=== PATIENT | male | born 1940 | race Caucasian/White ===

== ENCOUNTER 2021-06-16 19:24 | Emergency (ER) | payer MEDICARE, OTHER, SELFPAY ==
[2021-06-16 19:29] VITALS: BP 154/84; PULSE 100; RESP 20; TEMP 36.2; O2SAT 94; BMI 32.6
--- NOTE | 2021-06-16 19:57 | W.ED.ANXIETY ---
HPI - Anxiety General: Chief Complaint: Anxiety Stated Complaint: extreme anxiety Time Seen by Provider: 06/16/21 19:40 History of Present Illness: HPI narrative: Patient is a 80-year-old male who comes to the ED with anxiety. Patient says he has had anxiety like this in the past. It started last night when he went to lay down he described feeling a little claustrophobic and he got real antsy. He says he was not able to lay down and sleep all night. He was pacing around the room all night. Reports feeling mild shortness of breath and fidgety during anxiety episodes. patient's symptoms did improve during the day with some of them. He says when it started getting dark he started feeling the same symptoms again. He has talked to his primary care doctor about this anxiety and he is supposed to be getting a prescription for anxiety soon. He denies any chest pain. Patient also states that about a week ago he had some skin cancer removed on his right lower leg. He did say that caused him some stress over the past week because it required a lot of home care and changing dressing twice a day. Associated symptoms: Deny chest pain, chills, fever(s), headache(s), nausea, palpitations or vomiting Review of Systems Const: Denies: fever(s), chills or fatigue Eyes: Denies: change in vision or eye discomfort ENMT: Denies: throat pain, odynophagia, nasal discharge or nasal congestion Card: Denies: chest pain, palpitations, edema, swelling of feet/ankles, dyspnea on exertion or orthopnea Resp: Denies: dyspnea, productive cough or non-productive cough GI: Denies: abdominal pain, nausea, vomiting, diarrhea, constipation or hematochezia : Denies: flank pain, difficulty urinating, dysuria or hematuria Musc: Denies: neck pain, back pain or extremity swelling Skin/Breast: Denies: rash or new lesions Neuro: Denies: headache(s), numbness in extremities or weakness in extremities Psych: Reports: anxiety Physical Exam Const: COMMON NORMALS: no acute distress, patient oriented x3 and alert GENERAL APPEARANCE: cooperative and anxious HENMT: COMMON NORMALS: normocephalic HEAD & SCALP: normocephalic MOUTH: Normal oral and palatal mucosa present THROAT: posterior oropharynx normal and uvula midline Eye: COMMON NORMALS: Equal, round and reactive pupils present PUPIL: Yes Equal, round and reactive pupils present Neck/C-Spine: COMMON NORMALS: supple GENERAL: Yes normal visual inspection Resp: COMMON NORMALS: normal respiratory effort, No retractions, No use of accessory muscles and clear to auscultation bilaterally AUSCULTATION: clear to auscultation bilaterally Cardio: COMMON NORMALS: regular rate, regular rhythm, S1 normal heart sound present, S2 normal heart sound present, No gallops present (Cardio), No clicks present (Cardio), No murmurs present (Cardio) and Peripheral pulses 2+ throughout RATE: regular rate RHYTHM: regular rhythm HEART SOUNDS: S1 normal heart sound present and S2 normal heart sound present PERIPHERAL PULSES: Peripheral pulses 2+ throughout GI: COMMON NORMALS: Normal to inspection, nondistended, normoactive bowel sounds present, Soft to palpation, non-tender and no masses PALPATION: Yes Soft to palpation : COMMON NORMALS: Yes no CVA tenderness BLADDER/KIDNEY EXAM: Yes no CVA tenderness Back/Pelvis: COMMON NORMALS: no CVA tenderness Neuro: COMMON NORMALS: patient oriented x3 and moves all extremities SENSORIUM/ORIENTATION: Yes alert Skin: GENERAL SKIN EXAM: dry skin Course Reevaluation(s): Reevaluation #1: After patient received dose of Ativan here in the ED his symptoms resolved and he was ready to go home and rest. Vital Signs: Vital signs: Vital Signs Temperature 97.1 F L 06/16/21 19:29 Pulse Rate 84 06/16/21 21:44 Respiratory Rate 16 06/16/21 21:44 Blood Pressure 142/89 06/16/21 21:44 Pulse Oximetry 98 06/16/21 21:44 MDM - Anxiety MDM Narrative: Medical decision making narrative: Patient is a 80-year-old male comes to the ED with acute anxiety. Symptoms started last night and he had trouble sleeping and was up unable to relax all night. Denies any chest pain. Patient says he has had this acute anxiety multiple times in the past and also states that he is currently trying to get on a prescription for anxiety with his PCP. Vitals are stable. Exam is benign. EKG showed normal sinus rhythm with no ST segment elevation or depression. CBC and CMP were unremarkable. Patient was given dose of Ativan while here in the ED and his symptoms improved greatly. Patient was diagnosed with acute anxiety and discharged home with a prescription for Vistaril. He has an appointment set up with his PCP for this coming June 21. Return to ED precautions given. Patient understood agree with plan. EKG Data^: EKG 1: Attestation: I personally reviewed and interpreted this EKG as follows: EKG interpretation date: 06/16/21 Interpretation: Normal sinus rhythm, 97 bpm, no ST segment elevation or depression seen. Lab Data: Attestation: I reviewed the patient's lab results. Labs: Lab Results 06/16/21 06/16/21 20:54 20:54 WBC 10.8 10^3/uL H 10 ^3/uL (4.0-10.0) RBC 4.41 10^6/uL 10^6 /uL (4.1-5.3) Hgb 15.0 g/dL g/dL (11.7-16.6) Hct 43.1 % % (42.0-52.0) MCV 97.7 fl H fl (80-94) MCH 34.0 pg pg (28.0-34.0) MCHC 34.8 g/dL g/dL (30.0-36.0) RDW 12.5 % % (12.1-15.1) Plt Count 230 10^3/cmm 10^3 /cmm (130-400) MPV 9.1 fL fL (7.4-10.4) Neut % (Auto) 73.5 % % Lymph % (Auto) 13.7 % % Vance % (Auto) 10.2 % % Eos % (Auto) 1.8 % % Baso % (Auto) 0.3 % % Neut # (Auto) 7.97 10^3/uL H 10 ^3/uL (1.8-7.7) Lymph # (Auto) 1.5 10^3/uL 10^3/ uL (0.8-4.8) Vance # (Auto) 1.1 10^3/uL H 10^ 3/uL (0.2-0.9) Eos # (Auto) 0.2 10^3/uL 10^3/ uL (0.0-0.8) Baso # (Auto) 0.0 10^3/uL 10^3/ uL (0.0-0.1) Nucleated RBC % (a uto) 0 % % Nucleated RBCs # 0.0 /100WBC /100W BC Sodium 139 mmol/L mmol/L (136-145) Potassium 4.2 mmol/L mmol/L (3.5-5.1) Chloride 105 mmol/L mmol/L (98-107) Carbon Dioxide 21 mmol/L L mmol/ L (22-29) Anion Gap 17.2 (5-19) BUN 22 mg/dL mg/dL (8-23) Creatinine 1.1 mg/dL mg/dL (0.7-1.2) GFR Calculation Not Reportable Glucose 91 mg/dL mg/dL (65-115) Calculated Osmolal ity 291 mOsm/kg mOsm/ kg (285-295) Calcium 8.4 mg/dL L mg/dL (8.5-10.5) Total Bilirubin 0.3 mg/dL mg/dL (0.15-1.2) AST 24 U/L U/L (0-40) ALT 29 U/L U/L (0-41) Alkaline Phosphata se 60 IU/L IU/L (40-130) Total Protein 6.4 g/dL L g/dL (6.6-8.7) Albumin 4.2 g/dL g/dL (3.5-5.2) Globulin 2.2 g/dL g/dL (1.3-4.6) Discharge Plan Discharge Patient Disposition: Home Clinical Impression: Acute anxiety Condition: Stable Prescriptions: New hydroxyzine pamoate 50 mg capsule 50 mg PO Q8H PRN (Reason: acute anxiety) Qty: 20 RF: 0 Discharge Orders: Discharge ED (Routine); Ordered 06/16/21 Ordered By: Samir Bautista Referrals: Jerome Abdalla MD [Primary Care Provider] - Discharge Diet: Regular Discharge Activity: Resume usual activity Patient Instructions: Anxiety (ED) Activity Restrictions/Additional Instructions: Follow-up with your PCP at your scheduled appointment this coming Saturday. Take medications as prescribed. Return to the ER or your medical provider if condition worsens or you start developing chest pain. Please read and understand discharge instructions. Thank you for choosing [facility] for your healthcare needs today. Please realize this is an emergency room and that we are providing you with a medical screening exam and this may not be complete and all inclusive of all the testing and or work up that you may need to determine your ailment or severity of your illness. It is very important that you follow up as instructed or that you return to the Emergency Department should you have concerns or if your condition changes or worsens in any way. Coding Level of Care Code ED Contact Center Rep for Diana Fwnirmala Exam Comprehensive
[2021-06-16] MEDS: LORazepam 1 mg Tablet PO (20:00)
[2021-06-16 21:02] LABS: Basophils % 0.3 %; Eosinophils # 0.2 10^3/uL (0.0-0.8); Eosinophils % 1.8 %; Hematocrit 43.1 % (42.0-52.0); Lymphocytes # 1.5 10^3/uL (0.8-4.8); Lymphocytes % 13.7 %; Mean Corpuscular HGB Conc 34.8 g/dL (30.0-36.0); Mean Corpuscular Volume 97.7 fl (80-94); Mean Platelet Volume 9.1 fL (7.4-10.4); Monocytes # 1.1 10^3/uL (0.2-0.9); Monocytes % 10.2 %; Neutrophils # 7.97 10^3/uL (1.8-7.7); Neutrophils % 73.5 %; Nucleated Red Blood Cells % 0 %; Platelet Count 230 10^3/cmm (130-400); Red Blood Count 4.41 10^6/uL (4.1-5.3); Red Cell Distribution Width 12.5 % (12.1-15.1); White Blood Count 10.8 10^3/uL (4.0-10.0)
[2021-06-16 21:25] LABS: Alanine Aminotransferase 29 U/L (0-41); Albumin Level 4.2 g/dL (3.5-5.2); Alkaline Phosphatase 60 IU/L (40-130); Anion Gap 17.2 (5-19); Aspartate Amino Transferase 24 U/L (0-40); Blood Urea Nitrogen 22 mg/dL (8-23); Calcium 8.4 mg/dL (8.5-10.5); Carbon Dioxide 21 mmol/L (22-29); Chloride 105 mmol/L (98-107); Globulin 2.2 g/dL (1.3-4.6); Glucose 91 mg/dL (65-115); Osmolality Calculated 291 mOsm/kg (285-295); Potassium 4.2 mmol/L (3.5-5.1); Sodium 139 mmol/L (136-145); Total Bilirubin 0.3 mg/dL (0.15-1.2); Total Protein 6.4 g/dL (6.6-8.7)
[2021-06-16 21:44] VITALS: BP 142/89; PULSE 84; RESP 16; O2SAT 98
== END 2021-06-16 21:44 | disposition home or self-care (01) ==
PROVIDERS: Emergency Provider Physician Assistant; PCP Family Medicine
DX: F41.9 Anxiety disorder, unspecified (principal)
CPT/HCPCS: 80053; 85025; 99283

== ENCOUNTER → 2023-02-04 13:59 | Outpatient (BNVA) | payer MEDICARE, OTHER, SELFPAY | PROVIDERS: PCP Family Medicine; Visit Provider Nurse Practitioner Family | DX: L57.0 Actinic keratosis (principal); L30.1 Dyshidrosis [pompholyx]; L81.4 Other melanin hyperpigmentation; L82.1 Other seborrheic keratosis; D22.5 Melanocytic nevi of trunk; L85.3 Xerosis cutis; L82.0 Inflamed seborrheic keratosis; L57.8 Other skin changes due to chronic exposure to nonionizing radiation | CPT/HCPCS: 17004; 17110; 99203 ==

== ENCOUNTER 2023-05-20 15:09 | Emergency (ER) | payer MEDICARE, OTHER, SELFPAY ==
[2023-05-20 15:15] VITALS: BP 134/79; PULSE 82; RESP 16; TEMP 36.4; O2SAT 97; BMI 29.9
--- NOTE | 2023-05-20 16:03 | W.ED.BACK ---
HPI - Back Pain/Injury General: Chief Complaint: Back Pain/Injury Stated Complaint: back pain Time Seen by Provider: 05/20/23 15:29 Source: patient Mode of arrival: ambulatory Limitations: no limitations History of Present Illness: Patient is a nice 82-year-old male who presents to ED today with complaint of left-sided lower back pain. Patient states he has had similar pains multiple times in the past and normally can get flares calmed down with conservative therapies at home. He states over the past few days he has not been able to find relief. He states he recently saw his primary care provider and had lumbar XRs performed which showed chronic degenerative changes. He states he was given IM steroids which initially helped but pain has returned. He feels like pain is somewhat tolerable at rest when he gets up and walks he states that the area catches . He is not having any radicular symptoms into his lower extremities. He has no saddle anesthesia or issues with bowel/bladder incontinence/retention. There is no radiation into his abdomen. No urinary symptoms. MD elicited complaint: back pain Onset (ago): day(s) Timing: constant Severity: moderate Similar Symptoms Previously: No Quality: sharp Location: left lower back Radiation: none Exacerbating factors: walking Relieving factors: none Associated symptoms: Reports difficulty walking (secondary to back pain); Deny abdominal pain, chills, change in bowel habits, dysuria, fatigue, fever(s), nausea, urinary urgency or vomiting Work related injury: No Review of Systems Const: Denies: fever(s), chills, body aches, fatigue or malaise Card: Denies: chest pain Resp: Denies: dyspnea GI: Denies: abdominal pain, nausea, vomiting, diarrhea or change in bowel habits : Denies: flank pain, difficulty urinating, dysuria, urinary frequency, urinary urgency, urinary hesitancy, genital pain or testicular pain Musc: Reports: back pain; Denies: neck pain, extremity pain, extremity swelling, joint pain or joint swelling Skin/Breast: Denies: rash Neuro: Reports: difficulty walking (secondary to back pain); Denies: numbness in extremities, weakness in extremities or sensory changes Physical Exam Const: COMMON NORMALS: average body habitus, patient oriented x3, no limitations, healthy appearing and alert GENERAL APPEARANCE: cooperative and in distress (appears uncomfortable secondary to pain) ORIENTATION/CONSCIOUSNESS: Yes awake, Yes oriented to person, Yes oriented to place and Yes oriented to time Resp: COMMON NORMALS: normal respiratory effort and clear to auscultation bilaterally AUSCULTATION: clear to auscultation bilaterally Cardio: COMMON NORMALS: regular rate and regular rhythm RATE: regular rate RHYTHM: regular rhythm GI: COMMON NORMALS: Normal to inspection, nondistended, normoactive bowel sounds present, Soft to palpation, non-tender and no masses PALPATION: Yes Soft to palpation : COMMON NORMALS: Yes no CVA tenderness BLADDER/KIDNEY EXAM: Yes no CVA tenderness Back/Pelvis: COMMON NORMALS: no CVA tenderness, thoracic and lumbar spine normal to inspection, no thoracic nor lumbar tenderness and thoraco-lumbar ROM normal SACROILIAC JOINTS: Yes SI joint(s) abnormal SACRUM: no tenderness COCCYX: no tenderness BACK IMAGE (MALE): 1. TTP Extremity: COMMON NORMALS: normal to inspection, full ROM, capillary refill normal, no joint enlargement, no clubbing, cyanosis or edema, no calf tenderness and no pedal edema GENERAL: Yes normal exam except as noted Neuro: COMMON NORMALS: patient oriented x3, moves all extremities, no focal motor deficits and no sensory deficits noted SENSORIUM/ORIENTATION: Yes alert, Yes oriented to person, Yes oriented to place and Yes oriented to time MOTOR EXAM: 5/5 motor strength present throughout Skin: COMMON NORMALS: no rashes or lesions noted GENERAL SKIN EXAM: no rashes or lesions noted Course Vital Signs: Vital signs: Vital Signs Temperature 97.6 F 05/20/23 15:15 Pulse Rate 82 05/20/23 17:50 Respiratory Rate 16 05/20/23 15:15 Blood Pressure 101/67 05/20/23 17:50 Pulse Oximetry 95 05/20/23 17:50 Oxygen Delivery Me thod Room Air 05/20/23 16:22 MDM - Back Pain/Injury Medical Decision Making Patient states he feels somewhat better after medications given here although still in discomfort. There are no red flag symptoms on patient's history or physical exam. No form of emergent imaging is necessary at this time. We will treat patient with pain medications, muscle relaxers, steroids, anti-inflammatories. Recommend he follow-up with primary care later this week if symptoms do not seem to be improving. Return ED precautions given. No radiology studies performed this visit Discharge Plan Discharge Patient Disposition: Home Clinical Impression: Sacro-iliac pain Condition: Stable Prescriptions: New cyclobenzaprine 10 mg tablet 10 mg PO TID Qty: 14 0RF hydrocodone-acetaminophen 5-325 mg tablet 1 tab PO Q6H PRN (Reason: pain) Qty: 14 0RF Medrol (Mohan) 4 mg tablets,dose pack See Rx Instructions .ROUTE .COMPLEX Qty: 21 0RF Rx Instructions: orally per package directions ibuprofen 600 mg tablet 600 mg PO Q8H PRN (Reason: pain) Qty: 20 0RF No Action paroxetine HCl 10 mg tablet 10 mg PO DAILY doxazosin 8 mg tablet 8 mg PO DAILY gabapentin 300 mg capsule 300 mg PO DAILY rosuvastatin 20 mg tablet 20 mg PO BEDTIME Discharge Orders: Discharge ED (Routine); Ordered 05/20/23 Ordered By: Caridad Andrade Referrals: Jerome Abdalla MD [Primary Care Provider] - Patient Instructions: Sacroiliitis (ED), Opioid Safety, Pain Management Activity Restrictions/Additional Instructions: As we discussed we will put you on steroids, anti-inflammatories, pain medications, and muscle relaxers to help with your discomfort. You may also try ice, heat, and gentle stretches. As we discussed please follow-up with your primary care provider later this week if symptoms do not seem to be improving. Coding Level of Care Code ED Director Of Occupational Therapy for Diana Wick
[2023-05-20] MEDS: dexamethasone 10 mg/mL INJ 6 MG IV (16:16)
[2023-05-20] MEDS: orphenadrine 30 mg/mL Inj 2 mL 60 MG IV (16:16)
[2023-05-20] MEDS: morphine 4 mg/mL SDV 1 mL IVP (16:16)
[2023-05-20] MEDS: ketorolac 60 mg/2 mL INJ 15 MG IVP (16:16)
[2023-05-20 16:22] VITALS: PULSE 82; O2SAT 96
[2023-05-20] MEDS: HYDROmorphone 1 mg/mL INJ 1 mL 0.5 MG IVP (17:22)
[2023-05-20 17:50] VITALS: BP 101/67; PULSE 82; O2SAT 95
== END 2023-05-20 17:52 | disposition home or self-care (01) ==
PROVIDERS: Emergency Provider Physician Assistant; PCP Family Medicine
DX: M53.3 Sacrococcygeal disorders, not elsewhere classified (principal)
CPT/HCPCS: 96374; 96375; 99284; J1100; J1170; J1885; J2270; J2360

== ENCOUNTER → 2023-06-10 10:18 | Outpatient (BNVA) | payer MEDICARE, OTHER, SELFPAY | PROVIDERS: PCP Family Medicine; Visit Provider Nurse Practitioner Family | DX: L81.4 Other melanin hyperpigmentation (principal); L82.1 Other seborrheic keratosis; D22.5 Melanocytic nevi of trunk; L85.3 Xerosis cutis; L57.8 Other skin changes due to chronic exposure to nonionizing radiation; L73.8 Other specified follicular disorders; L23.9 Allergic contact dermatitis, unspecified cause; Z08 Encounter for follow-up examination after completed treatment for malignant neoplasm; Z85.828 Personal history of other malignant neoplasm of skin; L57.0 Actinic keratosis; L82.0 Inflamed seborrheic keratosis | CPT/HCPCS: 17004; 17110; 99214 ==

== ENCOUNTER → 2024-04-07 13:43 | Outpatient (BNVA) | payer MEDICARE, SELFPAY | PROVIDERS: PCP Family Medicine; Visit Provider Nurse Practitioner Family | DX: D48.5 Neoplasm of uncertain behavior of skin (principal); L81.4 Other melanin hyperpigmentation; L82.1 Other seborrheic keratosis; D22.5 Melanocytic nevi of trunk; L57.8 Other skin changes due to chronic exposure to nonionizing radiation; L73.8 Other specified follicular disorders; L57.0 Actinic keratosis; L82.0 Inflamed seborrheic keratosis; Z85.828 Personal history of other malignant neoplasm of skin | CPT/HCPCS: 11102; 17004; 17110; 99213 ==

== ENCOUNTER → 2024-06-08 07:59 | Outpatient (BNVA) | payer MEDICARE, SELFPAY | PROVIDERS: PCP Family Medicine; Visit Provider Dermatology | DX: C44.92 Squamous cell carcinoma of skin, unspecified (principal); I78.8 Other diseases of capillaries; L57.0 Actinic keratosis | CPT/HCPCS: 17000; 99214 ==

== ENCOUNTER → 2025-04-09 10:34 | Outpatient (BNVA) | payer MEDICARE, BC, SELFPAY | PROVIDERS: PCP Family Medicine; Visit Provider Dermatology | DX: L73.8 Other specified follicular disorders (principal); I78.8 Other diseases of capillaries; Z08 Encounter for follow-up examination after completed treatment for malignant neoplasm; D18.01 Hemangioma of skin and subcutaneous tissue; L81.4 Other melanin hyperpigmentation; L82.1 Other seborrheic keratosis; L57.8 Other skin changes due to chronic exposure to nonionizing radiation; Z85.828 Personal history of other malignant neoplasm of skin; D48.5 Neoplasm of uncertain behavior of skin; L57.0 Actinic keratosis | CPT/HCPCS: 11102; 17000; 99214 ==

== ENCOUNTER 2025-05-13 17:30 | Emergency (ER) | payer MEDICARE, OTHER, SELFPAY ==
[2025-05-13 17:34] VITALS: BP 157/88; PULSE 80; RESP 17; TEMP 36.7; O2SAT 95; BMI 33.1
--- OUTSIDE RECORDS SUMMARY | 2025-05-13 17:36 | XMS_ITS | Encounter Summary ---
Author Organization [facility] Address [address] [place] [address] Care Team Providers Care Laminator Preforms Name Role Phone Jerome Abdalla MD Primary Care Provider [phone] Encounter Details Date Type Department Care Team (Latest Contact Info) Description 02/28/2001 Outpatient Historical [facility] Vaisliy Paris MD [address] [place] [address] Nonallopathic lesion of abdomen and other sites, not elsewhere classified (Primary Dx) Social History Tobacco Use Types Packs/Day Years Used Date Smoking Tobacco: Never Assessed Sex and Gender Information Value Date Recorded Sex Assigned at Not on file 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
--- OUTSIDE RECORDS SUMMARY | 2025-05-13 17:36 | XMS_ITS | Encounter Summary ---
Author Organization [facility] Address [address] [place] [address] Care Team Providers Care It Support Analyst Name Role Phone Jerome Abdalla MD Primary Care Provider [phone] Encounter Details Date Type Department Care Team (Late st Contact Info) Description 09/25/2006 Inpatient Historical [facility] Levon Connelly MD 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 Gender Identity Not on file Sexual Orientation Not on file documented as of this encounter Plan of Treatment Not on file documented as of this encounter Procedures Procedure Name Priority Date/Time Associated Diagnosis Comments BASIC METABOLIC PANEL Routine 09/27/2006 5:56 AM CDT HEMOGLOBIN AND HEMATOCRIT Routine 09/26/2006 5:10 AM CDT BASIC METABOLIC PANEL Routine 09/26/2006 5:10 AM CDT HEMOGLOBIN AND HEMATOCRIT Routine 09/25/2006 11:40 AM CDT BASIC METABOLIC PANEL Routine 09/25/2006 11:40 AM CDT documented in this encounter Results * (ABNORMAL) BASIC METABOLIC PANEL (09/27/2006 5:56 AM CDT) GLUCOSE 99 70 - 110 mg/dL INTERFACE SYSTEM BUN 18 9 - 20 mg/dL INTERFACE SYSTEM CREATININE 1.9(H) 0.7 - 1.5 mg/dL INTERFACE SYSTEM SODIUM 139 136 - 145 mEq/L INTERFACE SYSTEM POTASSIUM 4.5 3.5 - 5.0 mEq/L INTERFACE SYSTEM Comment:Specimen slightly he molyzed CHLORIDE 109 95 - 110 mEq/L INTERFACE SYSTEM CO2 28 22 - 32 mmol/l INTERFACE SYSTEM CALCIUM 8.6 8.4 - 10.5 mg/dL INTERFACE SYSTEM ANION GAP 7(L) 9 - 20 mEq/L INTERFACE SYSTEM OSMOLALITY, CALCULATED 289 275 - 295 mOsm/Kg INTERFACE SYSTEM 09/27/2006 5:56 AM CDT Levon Connelly MD CHEMISTRY ORDERABLES Edited Performing Organization Address [facility] de Phone Number INTERFACE SYSTEM Refer to clinic/hospital department * (ABNORMAL) HEMOGLOBIN AND HEMATOCRIT (09/26/2006 5:10 AM CDT) HEMOGLOBIN 13.2(L) 14.0 - 18.0 g/dL INTERFACE SYSTEM HEMATOCRIT 39.1(L) 41.0 - 53.0 % INTERFACE SYSTEM 09/26/2006 5:10 AM CDT Levon Connelly MD HEMATOLOGY ORDERABLES Edited Performing Organization Address [facility] Phone Number INTERFACE SYSTEM Refer to clinic/hospital department * (ABNORMAL) BASIC METABOLIC PANEL (09/26/2006 5:10 AM CDT) GLUCOSE 113(H) 70 - 110 mg/dL INTERFACE SYSTEM BUN 20 9 - 20 mg/dL INTERFACE SYSTEM CREATININE 1.9(H) 0.7 - 1.5 mg/dL INTERFACE SYSTEM SODIUM 140 136 - 145 mEq/L INTERFACE SYSTEM POTASSIUM 4.1 3.5 - 5.0 mEq/L INTERFACE SYSTEM CHLORIDE 105 95 - 110 mEq/L INTERFACE SYSTEM CO2 29 22 - 32 mmol/l INTERFACE SYSTEM CALCIUM 7.9(L) 8.4 - 10.5 mg/dL INTERFACE SYSTEM ANION GAP 10 9 - 20 mEq/L INTERFACE SYSTEM OSMOLALITY, CALCULATED 291 275 - 295 mOsm/Kg INTERFACE SYSTEM 09/26/2006 5:10 AM CDT Levon Connelly MD CHEMISTRY ORDERABLES Edited Performing Organization Address [facility] Phone Number INTERFACE SYSTEM Refer to clinic/hospital department * HEMOGLOBIN AND HEMATOCRIT (09/25/2006 11:40 AM CDT) HEMOGLOBIN 14.8 14.0 - 18.0 g/dL INTERFACE SYSTEM HEMATOCRIT 42.4 41.0 - 53.0 % INTERFACE SYSTEM 09/25/2006 11:4 0 AM CDT Levon Connelly MD HEMATOLOGY ORDERABLES Edited Performing Organization Address [facility] Phone Number INTERFACE SYSTEM Refer to clinic/hospital department * (ABNORMAL) BASIC METABOLIC PANEL (09/25/2006 11:40 AM CDT) GLUCOSE 150(H) 70 - 110 mg/dL INTERFACE SYSTEM BUN 15 9 - 20 mg/dL INTERFACE SYSTEM CREATININE 1.3 0.7 - 1.5 mg/dL INTERFACE SYSTEM SODIUM 138 136 - 145 mEq/L INTERFACE SYSTEM POTASSIUM 4.3 3.5 - 5.0 mEq/L INTERFACE SYSTEM CHLORIDE 106 95 - 110 mEq/L INTERFACE SYSTEM CO2 24 22 - 32 mmol/l INTERFACE SYSTEM CALCIUM 8.0(L) 8.4 - 10.5 mg/dL INTERFACE SYSTEM ANION GAP 12 9 - 20 mEq/L INTERFACE SYSTEM OSMOLALITY, CALCULATED 288 275 - 295 mOsm/Kg INTERFACE SYSTEM 09/25/2006 11:4 0 AM CDT Levon Connelly MD CHEMISTRY ORDERABLES Edited Performing Organization Address [facility] Phone Number INTERFACE SYSTEM Refer to clinic/hospital department documented in this encounter Visit Diagnoses Diagnosis Malignant neoplasm of kidney, except pelvis (CMS/HCC)- Primary Malignant neoplasm of kidney, except pelvis documented in this encounter Care Teams It Support Analyst Relationship Specialty Start Date End Date Jerome Abdalla MD [address] [facility] [address] [place] [address] PCP - General Family Practice 10/07/12 documented as of this encounter
--- OUTSIDE RECORDS SUMMARY | 2025-05-13 17:36 | XMS_ITS | Encounter Summary ---
Author Organization [facility] Address [address] [place] [address] Care Team Providers Care Machine Design Checker Name Role Phone Jerome Abdalla MD Primary Care Provider [phone] Encounter Details Date Type Department Care Team (Latest Contact Info) Description 03/19/2007 Outpatient Historical [facility] [address] 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
--- OUTSIDE RECORDS SUMMARY | 2025-05-13 17:36 | XMS_ITS | Encounter Summary ---
Author Organization [facility] Address [address] [place] [address] Care Team Providers Care Patient Safety Sitter Name Role Phone Jerome Abdalla MD Primary Care Provider [phone] Encounter Details Date Type Department Care Team (Latest Contact Info) Description 05/07/2007 Outpatient [facility] [address] [place] [phone] Zacarias Dennis Malignant Neoplasm of Kidney, except Pelvis (CMS/HCC) (Primary Dx) Social History Tobacco Use Types Packs/Day Years Used Date Smoking Tobacco: Never Assessed Sex and Gender Information Value Date Recorded Sex Assigned at Not on file 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
--- OUTSIDE RECORDS SUMMARY | 2025-05-13 17:36 | XMS_ITS | Encounter Summary ---
Author Organization [facility] Address [address] [place] [address] Care Team Providers Care Staff Registered Nurse Name Role Phone Jerome Abdalla MD Primary Care Provider [phone] Encounter Details Date Type Department Care Team (Latest Contact Info) Description 03/19/2007 Outpatient Historical [facility] Procedures [address] 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
--- OUTSIDE RECORDS SUMMARY | 2025-05-13 17:36 | XMS_ITS | Encounter Summary ---
Author Organization [facility] Address [address] [place] [address] Care Team Providers Care Digital Project Manager Name Role Phone Jerome Abdalla MD Primary Care Provider [phone] Encounter Details Date Type Department Care Team (Latest Contact Info) Description 03/26/2007 Outpatient Historical [facility] Pain 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
--- OUTSIDE RECORDS SUMMARY | 2025-05-13 17:36 | XMS_ITS | Encounter Summary ---
Author Organization [facility] Address [address] [place] [address] Care Team Providers Care Curriculum Development Coordinator Name Role Phone Jerome Abdalla MD Primary Care Provider [phone] Encounter Details Date Type Department Care Team (Latest Contact Info) Description 09/03/2006 Outpatient Historical [facility] 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
--- OUTSIDE RECORDS SUMMARY | 2025-05-13 17:36 | XMS_ITS | Encounter Summary ---
Author Organization [facility] Address [address] [place] [address] Care Team Providers Care High Lift Driver Name Role Phone Jerome Abdalla MD Primary Care Provider [phone] Encounter Details Date Type Department Care Team (Latest Contact Info) Description 04/02/2007 Outpatient Historical [facility] Procedures [address] 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
--- OUTSIDE RECORDS SUMMARY | 2025-05-13 17:36 | XMS_ITS | Encounter Summary ---
Author Organization 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; SCREENING MAL NEOP-PROSTATE Social History Tobacco Use Types Packs/Day Years Used Date Smoking Tobacco: Never Assessed Sex and Gender Information Value Date Recorded Sex Assigned at Not on file 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
--- OUTSIDE RECORDS SUMMARY | 2025-05-13 17:36 | XMS_ITS | Clinical Summary ---
Author Organization [facility] Address [address] [facility] Attn: [place] [address] Care Team Providers Care Bar Back Name Role Phone Jerome Abdalla MD Primary Care Provider [phone] Allergies No known active allergies Medications doxazosin (CARDURA) 8 mg tabletIndication s:Benign non-nodular prostatic hyperplasia, presence of lower urinary tract symptoms unspecified Take 1 Tablet (8 mg) by mouth daily. 90 Tablet 3 10/30/2016 Active doxazosin (CARDURA) 8 mg tablet TAKE 1 TABLET EVERY DAY AT BEDTIME 90 Tablet 3 01/04/2016 Active Active Problems Problem Noted Date Diagnosed Date Personal history of kidney cancer 10/30/2016 BPH (benign prostatic hyperplasia) 10/28/2014 History of malignant neoplasm of kidney 10/08/19 13 Resolved Problems Problem Noted Date Diagnosed Date Resolved Date Renal cell carcinoma 08/24/2010 013 Social History Tobacco Use Types Packs/Day Years Used Date Smoking Tobacco: Never Alcohol Use Standard Drinks/Week Comments Not Asked 0 (1 standard drink = 0.6 oz pur e alcohol) Sex and Gender Information Value Date Recorded Sex Assigned at Not on file 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 Gender Identity Not on file Sexual Orientation Not on file Last Filed Vital Signs Vital Sign Reading Time Taken Comments Blood Pressure 140/89 10/30/2016 11:10 AM CDT Pulse 80 10/30/2016 11:10 AM CDT Temperature - - Respiratory Rate - - Oxygen Saturation - - Inhaled Oxygen Concentration - - Weight 97.5 kg (215 lb) 10/30/2016 11:10 AM CDT Height 172.7 cm (5' 8 ) 10/30/2016 11:10 AM CDT Body Mass Index 32.69 10/30/2016 11:10 AM CDT Plan of Treatment Health Maintenance Due Date Last Done Comments DTAP/TDAP/TD VACCINES (1 - Tdap) 1960 PNEUMOCOCCAL VACCINE 50+ YEARS (1 of 1 - PCV) 07/27/18 92 ZOSTER VACCINE (1 of 2) 1991 RSV VACCINE (60+ or ) (1 - 1-dose 75+ series) 2016 INFLUENZA VACCINE (#1) 2025 Care Teams Bar Back Relationship Specialty Start Date End Date Jerome Abdalla MD [address] [address] PCP - General Family Practice 10/07/12
--- OUTSIDE RECORDS SUMMARY | 2025-05-13 17:36 | XMS_ITS | Encounter Summary ---
Author Organization [facility] Address [address] [place] [address] Care Team Providers Care Relay Repairer Name Role Phone Jerome Abdalla MD Primary Care Provider [phone] Encounter Details Date Type Department Care Team (Latest Contact Info) Description 04/29/2007 Outpatient Historical [facility] [address] [facility] [address] [place] [phone] Catalina Fontaine PA NO ADDRESS ON FILE Thoracic or Lumbosacral Neuritis or Radiculitis, Unspecified (Primary Dx) Social History Tobacco Use Types Packs/Day Years Used Date Smoking Tobacco: Never Assessed Sex and Gender Information Value Date Recorded Sex Assigned at Not on file 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
--- OUTSIDE RECORDS SUMMARY | 2025-05-13 17:36 | XMS_ITS | Encounter Summary ---
Author Organization [facility] Address [address] [place] [address] Care Team Providers Care Bottle Cleaner Name Role Phone Jerome Abdalla MD Primary Care Provider [phone] Encounter Details Date Type Department Care Team (Latest Contact Info) Description 03/26/2007 Outpatient Historical [facility] Pain Management Procedures [address] 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
--- OUTSIDE RECORDS SUMMARY | 2025-05-13 17:36 | XMS_ITS | Encounter Summary ---
Author Organization [facility] Address [address] [place] [address] Care Team Providers Care Studio Assistant Name Role Phone Jerome Abdalla MD Primary Care Provider Encounter Details Date Type Department Care Team (Late st Contact Info) Description 09/12/2007 Outpatient Historical [facility] [address] [address] 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
--- OUTSIDE RECORDS SUMMARY | 2025-05-13 17:36 | XMS_ITS | Encounter Summary ---
Author Organization [facility] Address [address] [place] [address] Care Team Providers Care American Sign Language Interpreter Name Role Phone Jerome Abdalla MD Primary Care Provider [phone] Encounter Details Date Type Department Care Team (Latest Contact Info) Description 05/07/2007 Outpatient Historical [facility] Pain Management Procedures [address] 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
--- OUTSIDE RECORDS SUMMARY | 2025-05-13 17:36 | XMS_ITS | Continuity of Care Document ---
Author Organization YOVANI Brock Azevedo [facility] [address], [place], [facility]) Address [address] [place] [address] Care Team Providers Care Athletic Equipment Custodian Name Role Phone SAJI KIM Primary Care Provider Unavailabl e Assessment No assessment recorded. Plan of Treatment Reminders Order Date Submit Date Provider Last Modified By Organization Details Last Modified Time Details Appointments OFFICE VISIT JULIO 2024 01:00P Jodie Kim MD Not available Not available Not available 15 ANNUAL 2024 10:15A Jodie Kim MD Not available Not available Not available Lab None recorded. Referral None recorded. Procedures None recorded. Surgeries None recorded. Imaging None recorded. Medication Orders tizanidin e 2 mg tablet 2024 [facility]/Pharmacy #[id number], [address] [facility], [facility], [place], [address], 05/11/2025 17:55:36 betametha sone acetate and sodium phos 6 mg/mL suspensio n for injection 2024 [email or web address] Not available 05/11/2025 18:14:13 prednison e 20 mg tablet 2024 Miyaobabei [facility]/Pharmacy #[id number], [address], [facility], [place], [address], 05/11/2025 17:56:14 Patient TargetsNo targets recorded. Patient InstructionsNo instructions recorded. Reason for Referral None Reported. 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 ; right forearm; Date: 09/2019; 1 9:06AM by Nunu Colvin LPN, Office Visit; Promoted; acuity set as *; Not Available [facility] 3 03:16:40 Prostatit is 5442534 Active 2020 prostatit is; 1 9:06AM by Nunu Colvin LPN, Office Visit; Promoted; acuity set as *; Not Available [facility] 3 03:16:28 Gastroeso phageal reflux disease 948693442 Active 2020 Gastroeso phageal Reflux Disease; 1 9:06AM by Nunu Colvin LPN, Office Visit; Promoted; acuity set as *; Not Available [facility] 3 03:16:36 History of cancer metastati c to skin 02656031584 61697 Active 2020 Skin Cancer; 1 9:06AM by Nunu Colvin LPN, Office Visit; Promoted; acuity set as *; Not Available [facility] 3 03:16:41 Chronic kidney disease stage 2 874512460 Active 2022 EMILY almaraz [facility] 3 16:37:07 Hyperlipi demia 49804168 Active 2022 EMILY almaraz [facility] 3 16:37:05 History of primary malignant neoplasm of kidney 664398670 Active 2022 Saji Kim MD [address] [place] [address], [phone] , [facility] 3 13:13:29 History of squamous cell carcinoma of skin 959454846 Active 2022 Saji Kim MD [address] [place], [address] , [facility] 3 13:13:30 [facility] emia 17285296 Active 2023 EMILY NAIDA [facility] 4 11:39:32 Problem Notes None recorded. Procedures Surgical History Date Name Laterality Status Provider Name and Address Organization Details Recorded Time 4 Joint Inj Kenalog- Shoulder, Hip, Knee completed Saji Kim MD [address] [place] [address], [phone], [facility] 06/17/2024 13:06:19 3 Joint Inj Kenalog- Shoulder, Hip, Knee completed Saji Kim MD [address] [place] [address], [address], [facility] 06/18/2023 13:52:04 7 Colonoscopy completed EMILY NAIDA [facility] 06/18/2023 16:41:45 excision of right kidney completed EMILYMolly PASCAL [facility] 06/18/2023 16:40:56 Mohs surgery completed EMILY [facility] 06/18/2023 16:41:13 Imaging Results None recorded. Procedure Notes None recorded. Medical Equipment None Reported. Allergies No known drug allergies Medications Name Sig Start Date Stop Date Status Note LastModified by Organization Details LastModified Time cyclobenz aprine 10 mg tablet TAKE 1 TABLET BY MOUTH THREE TIMES A DAY 06/17 completed Not Available Not Available Not Available paroxetin e 10 mg tablet TAKE 1 TABLET BY MOUTH EVERY DAY 05/11 completed Not Available Not Available Not Available tizanidin e 2 mg tablet Take 1 tablet twice a day by oral route as needed, for back pain. 2024 active Not Available Not Available Not Avai lable hydrocodo ne 5 mg-acetam inophen 325 mg tablet TAKE 1 TABLET BY MOUTH EVERY 6 HOURS NEEDED FOR PAIN 06/18 completed Not Available Not Available Not Available prednison e 20 mg tablet Take 1 tablet every day by oral route for 6 days. 2024 active Not Available Not Available Not Avai lable triamcino lone acetonide 0.1 % topical cream APPLY TWICE DAILY TO RASH ON ARMS, TRUNK AND LEGS. NOT FOR SKIN FOLDS, FACE OR GROIN. active Not Available Not Available No t Available betametha sone acetate and sodium phos 6 mg/mL suspensio n for injection Take 1 mL by injectio n route. 2024 active Not Available Not Available Not Avai lable doxazosin 8 mg tablet TAKE 1 TABLET BY MOUTH EVERY DAY active Not Available Not Available No t Available imiquimod 5 % topical cream packet PLEASE SEE ATTACHED FOR DETAILED DIRECTIO NS 05/11 completed Not Available Not Available Not Available hydrocodo ne 7.5 mg-acetam inophen 325 mg tablet TAKE 1 TABLET BY MOUTH EVERY 8 HOURS NEEDED FOR MODERATE TO SEVERE PAIN 06/17 completed Not Available Not Available Not Available paroxetin e 20 mg tablet TAKE 1 TABLET BY MOUTH EVERY DAY active Not Available Not Available No t Available gabapenti n 300 mg capsule TAKE 1 CAPSULE BY MOUTH EVERY DAY 05/11 completed Not Available Not Available Not Available methylpre dnisolone 4 mg tablets in a dose pack TAKE DIRECTED ON PACKAGE DIRECTIO NS 06/18 completed Not Available Not Available Not Available rosuvasta tin 20 mg tablet TAKE 1 TABLET BY MOUTH EVERYDAY AT BEDTIME active Not Available Not Available No t Available doxazosin at bedtime 05/13 completed DOC DM/sd; 17671; Recorded 08/24/19 23 8:33AM by Keila Hernandez (Authori janesd through Jose Armando Ha MD), Refill Request; Mail Order Quantity : 90 Tablet; Mail Order Days: 90 Days; Refill Quantity : 0; Not Available Not Available Not Available hydroxyzi ne HCl every 8 hours as needed 2020 active Not Available Not Available Not Avai lable betametha sone 6 mg/mL injection suspensio n/norflur -HFC 245fa top spray Take 9 mg by miscell. route. 06/18 completed Not Available Not Available Not Available Vitals Date Recorded Body height Body mass index (BMI) Body weight Oxygen saturation Oxygen saturation in Arterial blood by Pulse oximetry Heart rate Body temperature Systolic And Diastolic Provider Name and Address Organization Details Last Updated DateTime 5 173.99 cm 33 kg/m2 95948.3 2 g 97 % 97 % 78 /min 98.2 [degF] 158/82 mm[Hg] Emerald Yost [facility] 5 17:46:44 Social History Question Answer Notes LastModified by [employer] Details LastModified Time Tobacco Smoking Status Never [facility] 06/18/2023 16:40:36 What Was The Date Of Your Most Recent Tobacco Screening? 05/11/2025 [email or web address] Information not available 05/11/2025 Sex: Unknown Functional Status Question Answer Note LastModified by [employer] Details LastModified Time Do you use any illicit or recreational drugs? No Information not available 06/18/2023 Do you or have you ever used any other forms of tobacco or nicotine? No [email or web address] Information not available 06/18/2023 What is your level of alcohol consumption? Occasional [email or web address] Information not available 06/18/2023 Mental Status None recorded. Family History Nothing Reported. Medical History No medical history recorded. Immunizations Vaccine Type Date Status Note Provider Nam e and Address Organization Details Recorded Time Tdap 3 completed Not Available [facility] 06/18/2023 12:59:03 Influenza, recombinant, quadrivalent, PF 0 completed Not Available [facility] 06/18/2023 12:59:03 zoster live 3 completed Not Available [facility] 06/18/2023 12:59:03 COVID-19, mRNA, LNP-S, PF, 100 mcg/0.5mL dose or 50 mcg/0.25mL dose 1 completed Clarissa almaraz [facility] 05/13/2023 13:12:10 COVID-19, mRNA, LNP-S, PF, 100 mcg/0.5mL dose or 50 mcg/0.25mL dose 1 completed Clarissa almaraz [facility] 05/13/2023 13:12:10 Pneumococcal conjugate PCV 13 8 completed Not Available [facility] 06/18/2023 12:59:03 pneumococcal polysaccharide PPV23 9 completed Not Available [facility] 06/18/2023 12:59:03 COVID-19, mRNA, LNP-S, PF, 100 mcg/0.5mL dose or 50 mcg/0.25mL dose 1 completed Clarissa almaraz [facility] 05/13/2023 13:12:10 Influenza, split virus, quadrivalent, PF 1 completed Clarissa lamaraz [facility] 05/13/2023 13:12:10 Past Encounters Encounter ID Performer Location Encounter Start Date Encounter Closed Date Diagnosis/Indication Diagnosis SNOMED-CT Code Diagnosis ICD10 Code Diagnosis IMO Codes Diagnosis Note [id number] UZMA MELLO [facility] ([facility] [address] [place] [phone] 05/11/2025 17:37:53 05/11/2025 18:05:49 Low back pain 689721667 M54.50 [id number] Health Concerns Section Related Observation LastModified by Organization Detai ls LastModified Time None Recorded Concern Status LastModified by Organization Details LastModified Time None Recorded Payers Encounter Date Sequence Insurance Name Policy Number Policy Bueno Covered Member ID Bueno Member ID Guarantor Name 05/11/2025 1 [place] Anderson Ray [id number] Anderson Ray 05/11/2025 2 [employer] B - PLAN F (MEDICARE SUPPLEMENT) [id number] Anderson Ray [id number] Anderson Ray Notes Date Note Type Note Provider Name and Address Organization Details Recorded Time 05/11/2025 text/html ROS as noted in the HPI Walk inBack problems. Left side. Hip area into the groin area. Pain makes him nauseous. x3 days. Using ice to help. Pressure also helps. COURTNEY VARGAS, [facility] [place], [address], [facility] 05/11/2025 18:03:53
--- OUTSIDE RECORDS SUMMARY | 2025-05-13 17:36 | XMS_ITS | Encounter Summary ---
Author Organization [facility] Address [address] [place] [address] Care Team Providers Care Social Insurance Administrator Name Role Phone Jerome Abdalla MD Primary Care Provider [phone] Encounter Details Date Type Department Care Team (Latest Contact Info) Description 09/18/2007 Outpatient [facility] [address] [phone] Kevon Bae MD [address] [place] [address] Degeneration of Lumbar or Lumbosacral Intervertebral Disc; Unspecified Arthropathy, Site Unspecified; Unspecified Personal History of Malignant Neoplasm; Personal History of Allergy to Penicillin Social History Tobacco Use Types Packs/Day Years Used Date Smoking Tobacco: Never Assessed Sex and Gender Information Value Date Recorded Sex Assigned at Not on file 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 Gender Identity Not on file Sexual Orientation Not on file documented as of this encounter Plan of Treatment Not on file documented as of this encounter Visit Diagnoses Diagnosis Degeneration of lumbar or lumbosacral intervertebral disc Arthropathy, unspecified, site unspecified Other and unspecified personal history of malignant neoplasm Personal history of allergy to penicillin documented in this encounter Care Teams Social Insurance Administrator Relationship Specialty Start Date End Date Jerome Abdalla MD 805 [facility] 1 [place] [address] PCP - General Family Practice 10/07/12 documented as of this encounter
--- OUTSIDE RECORDS SUMMARY | 2025-05-13 17:36 | XMS_ITS | Encounter Summary ---
Author Organization [facility] Address [address] [place] [address] Care Team Providers Care Horse Doctor Name Role Phone Jerome Abdalla MD Primary Care Provider [phone] Encounter Details Date Type Department Care Team (Latest Contact Info) Description 03/19/2007 Outpatient Historical [facility] [address] [place] [address] Kevon Bae MD [address] [place] [address] Unspecified Backache (Primary Dx); Lumbosacral Spondylosis; Thoracic or Lumbosacral Neuritis or Radiculitis, Unspecified; Lumbar Disc Displacement Social History Tobacco Use Types Packs/Day Years Used Date Smoking Tobacco: Never Assessed Sex and Gender Information Value Date Recorded Sex Assigned at Not on file Legal Sex Male 3:50 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 Gender Identity Not on file Sexual Orientation Not on file documented as of this encounter Plan of Treatment Not on file documented as of this encounter Visit Diagnoses Diagnosis Backache, unspecified- Primary Lumbosacral spondylosis Lumbosacral spondylosis without myelopathy Thoracic or lumbosacral neuritis or radiculitis, unspecified Lumbar disc displacement Displacement of lumbar intervertebral disc without myelopathy documented in this encounter Care Teams Horse Doctor Relationship Specialty Start Date End Date Jerome Abdalla MD 805 [facility] 1 [place] [address] PCP - General Family Practice 10/07/12 documented as of this encounter
--- OUTSIDE RECORDS SUMMARY | 2025-05-13 17:36 | XMS_ITS | Encounter Summary ---
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
--- OUTSIDE RECORDS SUMMARY | 2025-05-13 17:36 | XMS_ITS | Encounter Summary ---
Author Organization [facility] Address [address] [place] [address] Care Team Providers Care Towing Pilot Name Role Phone Jerome Abdalla MD Primary Care Provider [phone] Encounter Details Date Type Department Care Team (Latest Contact Info) Description 04/02/2007 Outpatient [facility] [address] [place] [phone] Zacarias Dennis Thoracic or Lumbosacral Neuritis or Radiculitis, Unspecified (Primary Dx) Social History Tobacco Use Types Packs/Day Years Used Date Smoking Tobacco: Never Assessed Sex and Gender Information Value Date Recorded Sex Assigned at Not on file 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
--- OUTSIDE RECORDS SUMMARY | 2025-05-13 17:36 | XMS_ITS | Encounter Summary ---
Author Organization [facility] Address [address] [place] [address] Care Team Providers Care Reinspector Name Role Phone Jerome Abdalla MD Primary Care Provider [phone] Encounter Details Date Type Department Care Team (Late st Contact Info) Description 07/15/2008 Outpatient Historical [facility] DEFAULT DEPARTMENT Kevon Bae MD [address] [place] [address] Social History Tobacco Use Types Packs/Day Years Used Date Smoking Tobacco: Never Assessed Sex and Gender Information Value Date Recorded Sex Assigned at Not on file Legal Sex Male 3:50 AM 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
--- OUTSIDE RECORDS SUMMARY | 2025-05-13 17:36 | XMS_ITS | Encounter Summary ---
Author Organization [facility] Address [address] [place] [address] Care Team Providers Care Cosmetologist Apprentice Name Role Phone Jerome Abdalla MD Primary Care Provider [phone] Encounter Details Date Type Department Care Team (Latest Contact Info) Description 10/03/2006 Outpatient Historical [facility]- [place] [address] [facility] [address]rd [place] [address] Levon Connelly MD [facility] [address] [place] [phone] [facility] (Primary Dx) Social History Tobacco Use Types Packs/Day Years Used Date Smoking Tobacco: Never Assessed Sex and Gender Information Value Date Recorded Sex Assigned at Not on file 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
--- OUTSIDE RECORDS SUMMARY | 2025-05-13 17:36 | XMS_ITS | Encounter Summary ---
Author Organization [facility] Address [address] [place] [address] Care Team Providers Care Director Of Head Start Name Role Phone Jerome Abdalla MD Primary Care Provider [phone] Encounter Details Date Type Department Care Team (Latest Contact Info) Description 09/13/[address] 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
--- OUTSIDE RECORDS SUMMARY | 2025-05-13 17:36 | XMS_ITS | Encounter Summary ---
Author Organization [facility] Address [address] [place] [address] Care Team Providers Care Pneumatic Tool Repairer Name Role Phone Jerome Abdalla MD Primary Care Provider [phone] Encounter Details Date Type Department Care Team (Late st Contact Info) Description 09/26/2007 Outpatient Historical [facility] [address] [place] [address] Kevon Bae MD [address] [place] [address] Social History Tobacco Use Types Packs/Day Years Used Date Smoking Tobacco: Never Assessed Sex and Gender Information Value Date Recorded Sex Assigned at Not on file 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
--- OUTSIDE RECORDS SUMMARY | 2025-05-13 17:36 | XMS_ITS | Encounter Summary ---
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
--- OUTSIDE RECORDS SUMMARY | 2025-05-13 17:36 | XMS_ITS | Continuity of Care Document ---
Author Organization YOVANI Azevedo [facility], [facility] ([facility]) Address [address] [place] [address] Care Team Providers Care Pneumatic Riveter Name Role Phone SAJI KIM Primary Care Provider Unavailabl e Assessment No assessment recorded. Plan of Treatment Reminders Order Date Submit Date Provider Last Modified By Organization Details Last Modified Time Details Appointments OFFICE VISIT JULIO 2024 09:45A Jodie Kim MD Not available Not available Not available 15 ANNUAL 2024 10:15A Jodie Kim MD Not available Not available Not available Lab None recorded. Referral None recorded. Procedures None recorded. Surgeries None recorded. Imaging None recorded. Medication Orders hydrocodo ne 7.5 mg-acetam inophen [address] [id number], [address] [facility] [address], [place], [address], 05/12/2025 14:25:24 Patient TargetsNo targets recorded. Patient InstructionsNo instructions recorded. Reason for Referral None Reported. 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 ; right forearm; Date: 09/2019; 1 9:06AM by Nunu Colvin LPN, Office Visit; Promoted; acuity set as *; Not Available [facility] 3 03:16:40 Prostatit is 5904172 Active 2020 prostatit is; 1 9:06AM by Nunu Colvin LPN, Office Visit; Promoted; acuity set as *; Not Available [facility] 3 03:16:28 Gastroeso phageal reflux disease 593504947 Active 2020 Gastroeso phageal Reflux Disease; 1 9:06AM by Nunu Colvin LPN, Office Visit; Promoted; acuity set as *; Not Available [facility] 3 03:16:36 History of cancer metastati c to skin 94453528623 89992 Active 2020 Skin Cancer; 1 9:06AM by Nunu Colvin LPN, Office Visit; Promoted; acuity set as *; Not Available [facility] 3 03:16:41 Chronic kidney disease stage 2 636172930 Active 2022 EMILY almaraz [facility] 3 16:37:07 Hyperlipi demia 03490330 Active 2022 EMILY almaraz [facility] 3 16:37:05 History of primary malignant neoplasm of kidney 511735823 Active 2022 Saji Kim MD [address] [place] [address], [address] [place] [address] , [facility] 3 13:13:29 History of squamous cell carcinoma of skin 267846929 Active 2022 Saji Kim MD [address] [place] [address], [address] , [facility] 3 13:13:30 Hyperglyc emia 82173550 Active 2023 EMILY almaraz [facility] 4 11:39:32 Problem Notes None recorded. Procedures Surgical History Date Name Laterality Status Provider Name and Address Organization Details Recorded Time 5 Joint Inj Kenalog- Shoulder, Hip, Knee completed Saji Kim MD [address] [place], [address], [facility] 05/12/2025 14:27:09 4 Joint Inj Kenalog- Shoulder, Hip, Knee completed Saji Kim MD [address] [place], [address], [facility] 06/17/2024 13:06:19 3 Joint Inj Kenalog- Shoulder, Hip, Knee completed Saji Kim MD [address] [place], [address], [facility] 06/18/2023 13:52:04 7 Colonoscopy completed [facility] 06/18/2023 16:41:45 excision of right kidney completed [facility] 06/18/2023 16:40:56 Mohs surgery completed [facility] 06/18/2023 16:41:13 Imaging Results None recorded. [...] Take 1 mL by injectio n route. 05/12 completed Not Available Not Available Not Available doxazosin 8 mg tablet TAKE 1 TABLET BY MOUTH EVERY DAY active Not Available Not Available No t Available imiquimod 5 % topical cream packet PLEASE SEE ATTACHED FOR DETAILED DIRECTIO NS 05/11 completed Not Available Not Available Not Available hydrocodo ne 7.5 mg-acetam inophen 325 mg tablet 1 po q 8 hours prn moderate to severe pain 2024 active Not Available Not Available Not Avai lable paroxetin e 20 mg tablet TAKE 1 [...] doxazosin at bedtime 05/13 completed DOC DM/sd; 77956; Recorded 08/24/19 23 8:33AM by Keila Hernandez (Authori janesd through Jose Armando Ha MD), Refill Request; Mail Order Quantity : 90 Tablet; Mail Order Days: 90 Days; Refill Quantity : 0; Not Available Not Available Not Available hydroxyzi ne HCl every 8 hours as needed 05/12 completed Not Available Not Available Not Available betametha sone 6 mg/mL injection suspensio n/norflur -HFC 245fa top spray Take 9 mg by miscell. route. 06/18 completed Not Available Not Available Not Available Vitals Date Recorded Body height Body mass index (BMI) Body weight Body temperature Heart rate Oxygen saturation Oxygen saturation in Arterial blood by Pulse oximetry Systolic And Diastolic Provider Name and Address Organization Details Last Updated DateTime 5 173.99 cm 33 kg/m2 11582.3 2 g 98.6 [degF] 104 /min 97 % 97 % 142/80 mm[Hg] EMILY PASCAL [facility] 5 13:57:01 Social History Question Answer Notes LastModified by We Tribute Details LastModified Time Tobacco Smoking Status Never Smoker [facility] 06/18/2023 16:40:36 What Was The Date Of Your Most Recent Tobacco Screening? 05/11/2025 [email or web address] Information not available 05/11/2025 Sex: Unknown Functional Status Question Answer Note LastModified by Organizat ion Details LastModified Time Do you use any illicit or recreational drugs? No [email or web address] Information not available 06/18/2023 Do you or have you ever used any other forms of tobacco or nicotine? No Information not available 06/18/2023 What is your level of alcohol consumption? Occasional [email or web address] Information not available 06/18/2023 Do you or have you ever used any nicotine-free cigarettes, vape, or chewing tobacco? No [email or web address] Information not available 05/12/2025 Mental Status None recorded. Family History Nothing Reported. Medical History No medical history recorded. Immunizations Vaccine Type Date Status Note Provider Nam e and Address Organization Details Recorded Time Tdap 3 completed Not Available [facility] 06/18/2023 12:59:03 Influenza, recombinant, quadrivalent, PF 0 completed Not Available [facility] 06/18/2023 12:59:03 zoster live 3 completed Not Available [facility] 06/18/2023 12:59:03 COVID-19, mRNA, LNP-S, PF, 100 mcg/0.5mL dose or 50 mcg/0.25mL dose 1 completed Clarissa almaraz [facility] 05/13/2023 13:12:10 COVID-19, mRNA, LNP-S, PF, 100 mcg/0.5mL dose or 50 mcg/0.25mL dose 1 completed Clarissa almaraz, [facility] 05/13/2023 13:12:10 Pneumococcal conjugate PCV 13 8 completed Not Available [facility] 06/18/2023 12:59:03 pneumococcal polysaccharide PPV23 9 completed Not Available [facility] 06/18/2023 12:59:03 COVID-19, mRNA, LNP-S, PF, 100 mcg/0.5mL dose or 50 mcg/0.25mL dose 1 completed Clarissa Erick null, [facility] 05/13/2023 13:12:10 Influenza, split virus, quadrivalent, PF 1 completed Clarissa Suarez null, [facility] 05/13/2023 13:12:10 Past Encounters Encounter ID Performer Location Encounter Start Date Encounter Closed Date Diagnosis/Indication Diagnosis SNOMED-CT Code Diagnosis ICD10 Code Diagnosis IMO Codes Diagnosis Note [id number] UZMA MELLO [facility] ([facility]) [address] [place] [address] 05/11/2025 17:37:53 05/11/2025 18:05:49 Low back pain 869707065 M54.50 064566 [id number] Saji Kim MD [facility]) [address] [place] [address] 05/12/2025 13:44:01 05/12/2025 14:27:25 Low back pain 849999372 M54.50 610688 Chronic sa croiliac joint pain 173598037 M53.3 G89.29 009923 with acute exacerbati on Health Concerns Section Related Observation LastModified by Organization Detai ls LastModified Time None Recorded Concern Status LastModified by Organization Details LastModified Time None Recorded Payers Encounter Date Sequence Insurance Name Policy Number Policy Bueno Covered Member ID Bueno Member ID Guarantor Name 05/12/2025 1 [place]: S Anderson Ray [id number] Anderson Ray 05/12/2025 2 [employer] - PLAN F (MEDICARE SUPPLEMENT) [id number] Anderson Ray [id number] Anderson Ray Notes Date Note Type Note Provider Name and Address Organization Details Recorded Time 05/12/2025 text/html Back PainReporte d by PatientHPIFor severity, patient reportspain level 8/10but reportsunchanged. For location, patient reportslumbar left. For quality, patient reportssharp. For duration, patient reports3 days. 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 he feels that has aggravated his back). For alleviating factors, patient reportslying downandice. For aggravating factors, patient reportsambulation,twis ting,flexing back,extending back,pulling,reaching, andstraining. For associated symptoms, patient reportsno fever,no weakness,no numbness, andno tingling.Patient was seen at walk in yesterday and given an injection and given prednisone and tizanidine. ROS as noted in the HPI a few weeks ago, he made a misstep and that may have started this issue. Saji Kim MD [address] [place] [address], [address], [facility] 05/12/2025 14:27:24
--- OUTSIDE RECORDS SUMMARY | 2025-05-13 17:36 | XMS_ITS | Encounter Summary ---
Author Organization [facility] Address [address] [place] [address] Care Team Providers Care Roller Coaster Engineer Name Role Phone Jerome Abdalla MD Primary Care Provider [phone] Encounter Details Date Type Department Care Team (Late st Contact Info) Description 09/18/2007 Outpatient Historical [facility] Pain 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
--- OUTSIDE RECORDS SUMMARY | 2025-05-13 17:36 | XMS_ITS | Clinical Summary ---
Author Organization [facility] Address [address] [place] [address] Care Team Providers Care Land Use Planner Name Role Phone Jerome Abdalla MD Primary Care Provider [phone] Allergies No known active allergies Medications SIMVASTATIN ORALIndications: Renal cell carcinoma (CMS/HCC),Specia l screening for malignant neoplasm of prostate Take by mouth. Active doxazosin (CARDURA) 8 mg tablet TAKE 1 TABLET EVERY DAY AT BEDTIME 90 Tablet 3 01/04/2016 Active doxazosin (CARDURA) 8 mg tabletIndication s:Benign non-nodular prostatic hyperplasia, presence of lower urinary tract symptoms unspecified Take 1 Tablet (8 mg) by mouth daily. 90 Tablet 3 10/30/2016 Active Active Problems Problem Noted Date Diagnosed [...] on file Legal Sex Male 3:50 AM FRONT OFFICE HELP Gender Identity Not on file Sexual Orientation [...] 75+ series) 2016 INFLUENZA VACCINE (#1) 2025 Colorectal Cancer Screening Discontinued FIT/FOBT Q 1 year Discontinued 02/23/1999 COLORECTAL SCREENING Discontinued FIT-DNA Q 3 years Discontinued Flex Sig/CT Colonography Q 5 years Discontinued Insurance [id number] [place] [address] [address] A AND [facility] Care Teams Land Use Planner Relationship Specialty Start Date End Date Jerome Abdalla MD [address] [facility] 1 [place] [address] PCP - General Family Practice 10/07/12
--- OUTSIDE RECORDS SUMMARY | 2025-05-13 17:36 | XMS_ITS | Encounter Summary ---
Author Organization [facility] Address [address] [place] [address] Care Team Providers Care Area Representative Name Role Phone Jerome Abdalla MD Primary Care Provider [phone] Encounter Details Date Type Department Care Team (Latest Contact Info) Description 09/04/2006 Outpatient Historical [facility] Urology- [address] Entrance B, 3rd [place] [address] Levon Connelly MD [address] [place] [address] [address] [place] [phone] Unspecified Disorder of Kidney and Ureter (Primary Dx) Social History Tobacco Use Types Packs/Day Years Used Date Smoking Tobacco: Never Assessed Sex and Gender Information Value Date Recorded Sex Assigned at Not on file Legal Sex Male 3:50 AM DIRECTOR OF ACCREDITATION Gender Identity Not on file Sexual Orientation Not on file documented as of this encounter Plan of Treatment Not on file documented as of this encounter Visit Diagnoses Diagnosis Unspecified disorder of kidney and ureter- Primary documented in this encounter Care Teams Area Representative Relationship Specialty Start Date End Date Jerome Abdalla MD [address] [facility] 1 [place] [address] PCP - General Family Practice 10/07/12 documented as of this encounter
--- OUTSIDE RECORDS SUMMARY | 2025-05-13 17:36 | XMS_ITS | Encounter Summary ---
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
--- OUTSIDE RECORDS SUMMARY | 2025-05-13 17:36 | XMS_ITS | Encounter Summary ---
Author Organization [facility] Address [address] [place] [address] Care Team Providers Care Metal Polisher And Buffer Apprentice Name Role Phone Jerome Abdalla MD Primary Care Provider [phone] Encounter Details Date Type Department Care Team (Late st Contact Info) Description 06/29/2008 Outpatient Historical [facility] [address] [facility] [address] [place] [phone] Kevon Bae MD [address] [place] [address] Social History Tobacco Use Types Packs/Day Years Used Date Smoking Tobacco: Never Assessed Sex and Gender Information Value Date Recorded Sex Assigned at Not on file 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
--- OUTSIDE RECORDS SUMMARY | 2025-05-13 17:37 | XMS_ITS | Encounter Summary ---
Author Organization [facility] Address [address] [place] [address] Care Team Providers Care Senior Cisco Network Engineer Name Role Phone Jerome Abdalla MD Primary Care Provider [phone] Encounter Details Date Type Department Care Team (Latest Contact Info) Description 09/13/2006 Outpatient Historical [facility] [place] [id number] [place] [address] Levon Connelly MD [address] [place] [phone] Pre-Operative Cardiovascular Examination (Primary Dx) Social History Tobacco Use Types Packs/Day Years Used Date Smoking Tobacco: Never Assessed Sex and Gender Information Value Date Recorded Sex Assigned at Not on file Legal Sex Male 3:50 AM 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 Gender Identity Not on file Sexual Orientation Not on file documented as of this encounter Plan of Treatment Not on file documented as of this encounter Procedures Procedure Name Priority Date/Time Associated Diagnosis Comments PT AND APTT Routine 09/13/2006 1:15 PM 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 CBC WITHOUT DIFFERENTIAL Routine 09/13/2006 1:15 PM 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 BASIC METABOLIC PANEL Routine 09/13/2006 1:15 PM 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 documented in this encounter Results * BASIC METABOLIC PANEL (09/13/2006 1:15 PM 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) GLUCOSE 95 70 - 110 mg/dL INTERFACE SYSTEM BUN 14 9 - 20 mg/dL INTERFACE SYSTEM CREATININE 1.0 0.7 - 1.5 mg/dL INTERFACE SYSTEM SODIUM 139 136 - 145 mEq/L INTERFACE SYSTEM POTASSIUM 3.9 3.5 - 5.0 mEq/L INTERFACE SYSTEM CHLORIDE 107 95 - 110 mEq/L INTERFACE SYSTEM CO2 25 22 - 32 mmol/l INTERFACE SYSTEM CALCIUM 9.5 8.4 - 10.5 mg/dL INTERFACE SYSTEM ANION GAP 11 9 - 20 mEq/L INTERFACE SYSTEM OSMOLALITY, CALCULATED 286 275 - 295 mOsm/Kg INTERFACE SYSTEM 09/13/2006 1:15 PM 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 us Levon Connelly MD CHEMISTRY ORDERABLES Edited INTERFACE SYSTEM Refer to clinic/hospital department * PT AND APTT (09/13/2006 1:15 PM 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) PROTIME 13.8 13.0 - 15.7 Secs INTERFACE SYSTEM Comment: As of 06 note change in normal range. INR 0.9 INTERFACE SYSTEM Comment: Expected Values for INR: DVT/PE Goal INR 2.5; range 2.0 - 3.0 Valve Replacement Tissue Goal INR 2.5; range 2.0 - 3.0 Mechanical Goal INR 3.0; range 2.5 - 3.5 POST-AL Goal INR 2.5; range 2.0 - 3.0 or Goal 3.0; range 2.5 - 3.5 Atrial Fibrillation Goal INR 2.5; range 2.0 - 3.0 Ischemic Stroke Goal INR 2.5; range 2.0 - 3.0 For additional information see Guidelines for Anticoagulation available from the pharmacy Stefany Gimenez PTT 27.8 21.6 - 35.6 Secs INTERFACE SYSTEM Comment: Therapeutic Range: Hi-level PE/DVT heparin protocol 80.1 -95.0 sec Lo-level PE/DVT heparin protocol 67.1 - 80.0 sec Cardiac Heparin Protocol 67.1 - 85.0 sec Neuro Heparin Protocol 67.1 - 80.0 sec As of 06/13/2006 note change in APTT Normal Range. 09/13/2006 1:15 PM 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 Levon Connelly MD HEMATOLOGY ORDERABLES Edited INTERFACE SYSTEM Refer to clinic/hospital department * (ABNORMAL) CBC WITHOUT DIFFERENTIAL (09/13/2006 1:15 PM 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) WBC 8.2 4.8 - 10.8 K/ul INTERFACE SYSTEM RBC 4.87 4.60 - 6.20 Mil/ul INTERFACE SYSTEM HEMOGLOBIN 15.9 14.0 - 18.0 g/dL INTERFACE SYSTEM HEMATOCRIT 44.9 41.0 - 53.0 % INTERFACE SYSTEM MCV 92.2 84.0 - 103.0 Fl INTERFACE SYSTEM MCH 32.6 27.0 - 34.0 pg INTERFACE SYSTEM MCHC 35.4(H) 30.0 - 35.0 g/dL INTERFACE SYSTEM RDW 12.7 11.0 - 14.5 % INTERFACE SYSTEM PLATELETS 219 140 - 440 K/ul INTERFACE SYSTEM MPV 10.0 8.9 - 12.8 Fl INTERFACE SYSTEM NEUTROPHILS 71.5 42.2 - 75.2 % INTERFACE SYSTEM LYMPHOCYTES 16.2(L) 24.0 - 44.0 % INTERFACE SYSTEM MONOCYTES 9.2 2.0 - 10.0 % INTERFACE SYSTEM EOSINOPHILS 2.7 0.0 - 7.0 % INTERFACE SYSTEM BASOPHILS 0.4 0.0 - 1.0 % INTERFACE SYSTEM NEUTROPHIL ABSOLUTE 5.8 2.0 - 8.0 K/uL INTERFACE SYSTEM LYMPHOCYTE ABSOLUTE 1.3 1.2 - 4.0 K/ul INTERFACE SYSTEM MONOCYTE ABSOLUTE 0.8(H) 0.1 - 0.6 K/ul INTERFACE SYSTEM EOSINOPHIL ABSOLUTE 0.2 0.0 - 0.7 K/ul INTERFACE SYSTEM BASOPHILS ABSOLUTE 0.0 0.0 - 0.2 K/ul INTERFACE SYSTEM 09/13/2006 1:15 PM 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 Levon Connelly MD HEMATOLOGY ORDERABLES Edited Performing Organization Address City/State/[facility] Co de Phone Number INTERFACE SYSTEM Refer to clinic/hospital department documented in this encounter Visit Diagnoses Diagnosis Pre-operative cardiovascular examination- Primary documented in this encounter Care Teams Senior Cisco Network Engineer Relationship Specialty Start Date End Date Jerome Abdalla MD [address] [place], [place] [phone] PCP - General Family Practice 10/07/12 documented as of this encounter
--- OUTSIDE RECORDS SUMMARY | 2025-05-13 17:37 | XMS_ITS | Data Portability ---
Author Organization YOVANI [facility], .[facility], [facility] Address [address] [place] [address] Care Team Providers Care Cst Name Role Phone SAJI ABDALLA Primary Care Provider Unavailabl e Assessment Encounter Date Assessment Date Assessment LastModified by Organization Details LastModified Time 06/18/2023 06/18/2023 I gave him an URL to the [facility] for sacroiliac pain. he is staying in bed longer than usual this is not due to the pain. he doesn't hurt when he is in bed. when he gets up it is stiff but not painful. 12 hours. repeated steroid injection. will f/u in a few days y phone and see how he is doing. [email or web address] Not available 06/18/2023 13:51:09 Plan of Treatment Reminders Order Date Submit Date Provider Last Modified By Organization Details Last Modified Time Details Appointments OFFICE VISIT JULIO 2024 01:00P Jodie Abdalla MD Not available Not available Not available 15 ANNUAL 2024 10:15A Jodie Abdalla MD Not available Not available Not available Lab CMP, serum or plasma 2023 024 [facility], [address], [place], [address], 06/18/2024 09:08:54 CBC 2023 024 [facility], [address], [place], [address], 06/18/2024 08:48:07 urinalysi s, complete 2023 024 [facility], [address] [facility], [facility] 1, [place], [address], 06/18/2024 08:49:16 microalbu min/creat inine, mass ratio, urine 2023 024 [place] [facility], [address] [place] [address] [address] [place], [address], 06/19/2024 14:40:36 lipid panel, blood 2023 024 [facility], [address] [facility], [facility] 1, [place], [address], 06/18/2024 09:08:56 urinalysi s, complete 2022 023 [facility] ([facility]), [address] [place] [address], [address], 05/13/2023 14:47:44 Referral None recorded. Procedures None recorded. Surgeries None recorded. Imaging XR, lumbosacr al spine - flexion/e xtension views [address] ([facility]), [address] [place] [address], [phone], 05/14/2023 11:35:40 XR, lumbosacr al spine, 2 or 3 view [address] ([facility]), [address] [place] [address], [address], 05/14/2023 11:36:01 Medication Orders tizanidin e 2 mg tablet 2024 025 [facility]armacy #[id number], [address] [place] [address], [facility] [address], [address], 05/11/2025 17:55:36 betametha sone acetate and sodium phos 6 mg/mL suspensio n for injection 2024 025 [email or web address] Not available 05/11/2025 18:14:13 prednison e 20 mg tablet 2024 025 [facility]/Ph[facility]acy #[id number], [address] [facility], [facility] [address], [address], 05/11/2025 17:56:14 paroxetin e 20 mg tablet 2023 024 [facility]/Pharmacy #[id number], [address] [facility], [facility] [address], [address], 06/17/2024 13:02:30 betametha sone 6 mg/mL injection suspensio n/norflur -HFC 245fa top spray 2022 023 [email or web address] Not available 06/18/2023 13:25:32 Patient TargetsNo targets recorded. Patient InstructionsNo instructions recorded. Reason for Referral None Reported. Results Created Date Observation Date Name Description Value Unit Range Abnormal Flag Note LastModifiedBy Organization Detail LastModifiedTime 05/13/2005/13/2023 urina lysis , compl ete color yellow Not Available [facility] ([facility]) [address] [place] [address], [address], 05/13/2023 13:41:52 05/13/20 23 05/13/2023 urina lysis , compl ete clarity clear clear Not Available [facility] ([facility]) [address] [place], [address], 05/13/2023 13:41:52 05/13/20 23 05/13/2023 urina lysis , compl ete glucose NG negati ve Not Available [facility] ([facility]) [address] [place], [address], 05/13/2023 13:41:52 05/13/2005/13/2023 urina lysis , compl ete bilirubin NG negati ve Not Available [facility] ([facility]) [address] [place], [address], 05/13/2023 13:41:52 05/13/20 23 05/13/2023 urina lysis , compl ete ketones NG negati ve Not Available [facility] ([facility]) [address] [place], [address], 05/13/2023 13:41:52 05/13/2005/13/2023 urina lysis , compl ete specific gravity 1.025 1.005- 1.025 Not Available [facility] ([facility]) [address] [place] [address], [address], 05/13/2023 13:41:52 05/13/20 23 05/13/2023 urina lysis , compl ete pH 5.5 5.0-7. 0 Not Available [facility] ([facility]) [address] [place] [address], [address], 05/13/2023 13:41:52 05/13/20 23 05/13/2023 urina lysis , compl ete protein NG Not Available [facility] ([facility]) [address] [place], [address], 05/13/2023 13:41:52 05/13/20 23 05/13/2023 urina lysis , compl ete uro 0.2 Not Available [facility] ([facility]) [address] [place] [address], [address], 05/13/2023 13:41:52 05/13/20 23 05/13/2023 urina lysis , compl ete nitrate NG negati ve Not Available [facility] ([facility]) [address] [place], [address], 05/13/2023 13:41:52 05/13/2005/13/2023 urina lysis , compl ete blood NG negati ve Not Available [facility] ([facility]) [address] [place], [address], 05/13/2023 13:41:52 05/13/20 23 05/13/2023 urina lysis , compl ete leukocytes NG negati ve Not Available [facility] ([facility]) [address] [place], [address], 05/13/2023 13:41:52 05/13/2005/13/2023 urina lysis , compl ete WBC 0-1 0 Not Available [facility] ([facility]) [address] [place], [address], 05/13/2023 13:41:52 05/13/20 23 05/13/2023 urina lysis , compl ete RBC NG 0 Not Available [facility] ([facility]) [address] [place], [address], 05/13/2023 13:41:52 05/13/20 23 05/13/2023 urina lysis , compl ete epi cells NG 0 Not Available [facility] ([facility]) [address] [place], [address], 05/13/2023 13:41:52 05/13/20 23 05/13/2023 urina lysis , compl ete bacteria NG Not Available [facility] ([facility]) [address] [place], [address], 05/13/2023 13:41:52 05/13/20 23 05/13/2023 urina lysis , compl ete other NG Not Available [facility] ([facility]) [address] [place], [address], 05/13/2023 13:41:52 06/18/2006/18/2024 CBC WBC 12.8 x10 4.5-10 .5 high Not Available [facility] [address] [address], [place], [address], 06/18/2024 08:48:07 06/18/20 24 06/18/2024 CBC RBC 4.71 x10 4.30-5 .90 Not Available [facility] [address] [address], [place], [address], 06/18/2024 08:48:07 06/18/20 24 06/18/2024 CBC HGB 15.4 g/dL 13.5-1 8.0 Not Available [facility] [address] [address], [place], [address], 06/18/2024 08:48:07 06/18/20 24 06/18/2024 CBC HCT 45.5 % 35.0-6 0.0 Not Available [facility] [address] [address], [place], [address], 06/18/2024 08:48:07 06/18/20 24 06/18/2024 CBC MCV 96.6 fL 80.0-9 9.9 Not Available [facility] [address] [facility], [place], [address], 06/18/2024 08:48:07 06/18/20 24 06/18/2024 CBC MCH 32.6 pg 27.0-3 2.0 high Not Available [facility] [address] [facility] 1, [place], [address], 06/18/2024 08:48:07 06/18/20 24 06/18/2024 CBC MCHC 33.8 g/dL 32.0-3 6.0 Not Available [facility] [address] [facility] 1, [place], [address], 06/18/2024 08:48:07 06/18/20 24 06/18/2024 CBC RDW 12.9 % 11.5-1 4.5 Not Available [facility] [address] [place] [address] [facility] 1, [place], [address], 06/18/2024 08:48:07 06/18/20 24 06/18/2024 CBC plt 211.6 x10 150.0- 451.0 Not Available [facility] [address] [facility] 1, [place], [address], 06/18/2024 08:48:07 06/18/20 24 06/18/2024 CBC lymphocytes % 11.2 % 20.0-5 0.0 low Not Available [facility] [address] [facility] 1, [place], [address], 06/18/2024 08:48:07 06/18/20 24 06/18/2024 CBC granulcytes % 81.9 % 30.0-7 0.0 high Not Available [facility] [address] [facility] 1, [place], [address], 06/18/2024 08:48:07 06/18/20 24 06/18/2024 CBC monocytes % 6.3 % 2.0-16 .0 Not Available [facility] [address] [facility] 1, [place], [address], 06/18/2024 08:48:07 06/18/20 24 06/18/2024 CBC granulcytes# 10.5 x10 Not Camelia ilable [facility] [address] [facility] 1, [place], [address], 06/18/2024 08:48:07 06/18/20 24 06/18/2024 CBC lymphocytes # 1.4 x10 Not Available [facility] [address] [facility] 1, [place], [address], 06/18/2024 08:48:07 06/18/20 24 06/18/2024 CBC monocytes # 0.8 x10 Not Avai lable [facility] [address] [facility] 1, [place], [address], 06/18/2024 08:48:07 06/18/20 24 06/18/2024 URINA LYSIS WITH MICRO color YELLOW Not Available [facility] [address] [facility] 1, [place], [address], 06/18/2024 08:49:16 06/18/20 24 06/18/2024 URINA LYSIS WITH MICRO clarity CLEAR Not Available [facility] [address] [facility] 1, [place], [address], 06/18/2024 08:49:16 06/18/20 24 06/18/2024 URINA LYSIS WITH MICRO glu NEGATI VE Not Available [facility] [address] [facility] 1, [place], [address], 06/18/2024 08:49:16 06/18/20 24 06/18/2024 URINA LYSIS WITH MICRO bili NEGATI VE Not Available [facility] [address] [facility] 1, [place], [address], 06/18/2024 08:49:16 06/18/20 24 06/18/2024 URINA LYSIS WITH MICRO ket NEGATI VE Not Available [facility] [address] [place] [address] [facility] 1, [place], [address], 06/18/2024 08:49:16 06/18/20 24 06/18/2024 URINA LYSIS WITH MICRO S.g 1.020 1.005- 1.025 Not Available [facility] [address], [place], [address], 06/18/2024 08:49:16 06/18/20 24 06/18/2024 URINA LYSIS WITH MICRO pH 6.0 5.0-7. 0 Not Available [facility] [address] [facility] [address], [place], [address], 06/18/2024 08:49:16 06/18/20 24 06/18/2024 URINA LYSIS WITH MICRO pro NEGATI VE Not Available [facility] [address], [place], [address], 06/18/2024 08:49:16 06/18/20 24 06/18/2024 URINA LYSIS WITH MICRO uro 0.2 E.U./D L Not Available [facility] [address] [facility] [address], [place], [address], 06/18/2024 08:49:16 06/18/20 24 06/18/2024 URINA LYSIS WITH MICRO nit NEGATI VE Not Available [facility] [address] [facility] [address], [place], [address], 06/18/2024 08:49:16 06/18/20 24 06/18/2024 URINA LYSIS WITH MICRO blo NEGATI VE Not Available [facility] [address], [place], [address], 06/18/2024 08:49:16 06/18/20 24 06/18/2024 URINA LYSIS WITH MICRO rukhsana NEGATI VE Not Available [facility] [address], [place], [address], 06/18/2024 08:49:16 06/18/20 24 06/18/2024 URINA LYSIS WITH MICRO WBC 1-2 Not Available [facility] [address], [place], [address], 06/18/2024 08:49:16 06/18/20 24 06/18/2024 URINA LYSIS WITH MICRO RBC 0-1 Not Available [facility] [address], [place], [address], 06/18/2024 08:49:16 06/18/20 24 06/18/2024 URINA LYSIS WITH MICRO epi cells NEGATI VE Not Available [facility] [address], [place], [address], 06/18/2024 08:49:16 06/18/20 24 06/18/2024 URINA LYSIS WITH MICRO bacteria NEGATI VE Not Available [facility] [address], [place], [address], 06/18/2024 08:49:16 06/18/20 24 06/18/2024 URINA LYSIS WITH MICRO other NG Not Available [facility] [address], [place], [address], 06/18/2024 08:49:16 06/18/20 24 06/18/2024 CMP (MALE ) glucose 123.0 mg/dL 60.0-9 9.0 high Not Available [facility] [address], [place], [address], 06/18/2024 09:08:54 06/18/20 24 06/18/2024 CMP (MALE ) BUN (blood urea nitrogen) 26.0 mg/dL 10.0-2 6.0 Not Available [facility] [address], [place], [address], 06/18/2024 09:08:54 06/18/20 24 06/18/2024 CMP (MALE ) creatinine (serum) 1.4 mg/dL 0.4-1. 5 Not Available [facility] [address], [place], [address], 06/18/2024 09:08:54 06/18/20 24 06/18/2024 CMP (MALE ) BUN/creatini ne ratio 18.57 ratio Not Available [facility] [address], [place], [address], 06/18/2024 09:08:54 06/18/20 24 06/18/2024 CMP (MALE ) eGFR calculated 51.6 Not Available [facility] [address], [place], [address], 06/18/2024 09:08:54 06/18/20 24 06/18/2024 CMP (MALE ) total protein 7.5 g/dL 6.0-8. 5 Not Available [facility] [address] [facility] [address], [place], [address], 06/18/2024 09:08:54 06/18/20 24 06/18/2024 CMP (MALE ) total bilirubin 0.5 mg/dL 0.2-1. 3 Not Available [facility] [address] [facility] [address], [place], [address], 06/18/2024 09:08:54 06/18/20 24 06/18/2024 CMP (MALE ) albumin 4.3 g/dL 3.5-5. 5 Not Available [facility] [address] [facility] [address], [place], [address], 06/18/2024 09:08:54 06/18/20 24 06/18/2024 CMP (MALE ) globulin 3.2 calc Not Available [facility] [address] [facility] [facility] [address], [place], [address], 06/18/2024 09:08:54 06/18/20 24 06/18/2024 CMP (MALE ) AST (SGOT) 28.0 U/L 0.0-46 .0 Not Available [facility] [address] [facility] 1, [place], [address], 06/18/2024 09:08:54 06/18/20 24 06/18/2024 CMP (MALE ) altv (SGPT) 25.0 U/L 13.0-6 9.0 normal Not Available [facility] [address] [facility], [place], [address], 06/18/2024 09:08:54 06/18/20 24 06/18/2024 CMP (MALE ) A/G ratio 1.3 ratio Not Available [facility] [address] [facility], [place], [address], 06/18/2024 09:08:54 06/18/20 24 06/18/2024 CMP (MALE ) ALP phos 73.0 U/L 30.0-1 40.0 normal Not Available [facility] [address] [place] [facility], [place], [address], 06/18/2024 09:08:54 06/18/20 24 06/18/2024 CMP (MALE ) calcium 9.4 mg/dL 8.4-10 .5 Not Available [facility] [address] [place] [facility], [place], [address], 06/18/2024 09:08:54 06/18/20 24 06/18/2024 CMP (MALE ) sodium 140.0 mmol/ L 136.0- 145.0 Not Available [facility] [address] [place] [facility], [place], [address], 06/18/2024 09:08:54 06/18/20 24 06/18/2024 CMP (MALE ) potassium 5.0 mmol/ L 3.5-5. 1 Not Available [facility] [address] [facility], [place], [address], 06/18/2024 09:08:54 06/18/20 24 06/18/2024 CMP (MALE ) chloride 107.0 mmol/ L 98.0-1 10.0 normal Not Available [facility] [address] [facility] 1, [place], [address], 06/18/2024 09:08:54 06/18/20 24 06/18/2024 CMP (MALE ) C02 25.0 mmol/ L 22.0-3 1.0 Not Available [facility] [address] [facility] 1, [place], [address], 06/18/2024 09:08:54 06/18/20 24 06/18/2024 CMP (MALE ) anion gap 8.0 calc Not Available [facility] [address] [facility] 1, [place], [address], 06/18/2024 09:08:54 06/18/20 24 06/18/2024 CMP (MALE ) osmolality 294.8 calc Not Available [facility] [address] [place] [address] [facility] 1, [place], [address], 06/18/2024 09:08:54 06/18/20 24 06/18/2024 LIPID PROFI LE (MALE ) cholesterol 132.0 mg/dL 0.0-20 0.0 Not Available [facility] [address] [place] [address] [facility] 1, [place], [address], 06/18/2024 09:08:56 06/18/20 24 06/18/2024 LIPID PROFI LE (MALE ) trig 73.0 mg/dL 0.0-15 0.0 Not Available [facility] [address] [facility], [place], [address], 06/18/2024 09:08:56 06/18/20 24 06/18/2024 LIPID PROFI LE (MALE ) HDL - direct 71.0 mg/dL >40.0 Not Available [facility] [address], [place], [address], 06/18/2024 09:08:56 06/18/20 24 06/18/2024 LIPID PROFI LE (MALE ) VLDL - direct 14.6 mg/dL Not Available [facility] [address] [facility], [place], [address], 06/18/2024 09:08:56 06/18/20 24 06/18/2024 LIPID PROFI LE (MALE ) LDL - direct 46.4 mg/dL 0.0-13 0.0 Not Available [facility] [address] [facility] [address], [place], [address], 06/18/2024 09:08:56 06/18/20 24 06/18/2024 HBA1C hemaglobin A1C 5.5 4.2-6. 5 Not Available [facility] [address], [place], [address], 06/18/2024 12:32:31 06/18/20 24 06/19/2024 ALBUM IN, RANDO M URINE W/CRE ATINI NE creatinine, random urine 105 mg/dL 20-320 normal Not Available [facility] [address] [place], [address], 06/19/2024 14:40:36 06/18/20 24 06/19/2024 ALBUM IN, RANDO M URINE W/CRE ATINI NE albumin, urine 0.2 mg/dL see note: normal Refer ence Range : Refer ence Range Not estab lishe d Not Available [facility] Lab21 [facility] [address] [place], [address], 06/19/2024 14:40:36 06/18/20 24 06/19/2024 ALBUM IN, RANDO M URINE W/CRE ATINI NE albumin/crea tinine ratio, random urine 2 mg/g_ creat <30 normal The ADA defin es abnor malit ies in album in excre tion as follo ws: Album inuri a Categ ory Resul t (mg/g creat inine ) Rosalinda l to Mildl y incre ased <30 Moder ately incre ased 30-29 9 Sever philippe incre ased > OR = 300 The ADA recom mends that at least two of three speci mens colle cted withi n a 3-6 month perio d be abnor mal befor e consi sudarshan g a patie nt to be withi n a diagn ostic categ ory. Not Available [facility] [address] [place], [address], 06/19/2024 14:40:36 05/16/20 23 05/13/2023 XR, lumbo sacra l spine , 2 or 3 view No observ ation record ed. [email or web address] [facility] [address] [place], [address], 06/05/2023 13:11:22 Result Notes None recorded. 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 ; right forearm; Date: 09/2019; 1 9:06AM by Nunu Colvin LPN, Office Visit; Promoted; acuity set as *; Not Available [facility] 3 03:16:40 Prostatit is 5186348 Active 2020 prostatit is; 1 9:06AM by Nunu Colvin LPN, Office Visit; Promoted; acuity set as *; Not Available [facility] 3 03:16:28 Gastroeso phageal reflux disease 081804858 Active 2020 Gastroeso phageal Reflux Disease; 1 9:06AM by Nunu Colvin LPN, Office Visit; Promoted; acuity set as *; Not Available [facility] 3 03:16:36 History of cancer metastati c to skin 42634311484 67093 Active 2020 Skin Cancer; 1 9:06AM by Nunu Colvin LPN, Office Visit; Promoted; acuity set as *; Not Available [facility] 3 03:16:41 Chronic kidney disease stage 2 535861477 Active 2022 EMILY almaraz, [facility] 3 16:37:07 Hyperlipi demia 71544733 Active 2022 EMILY almaraz [facility] 3 16:37:05 History of primary malignant neoplasm of kidney 078994399 Active 2022 Saji Abdalla MD [address] [place] [address], [phone] , [facility] 3 13:13:29 History of squamous cell carcinoma of skin 143986121 Active 2022 Saji Abdalla MD [address] [place] [phone] , [facility] 3 13:13:30 Hyperglyc emia 31749915 Active 2023 EMILY almaraz [facility] 4 11:39:32 Problem Notes None recorded. Procedures Surgical History Date Name Laterality Status Provider Name and Address Organization Details Recorded Time 4 Joint Inj Kenalog- Shoulder, Hip, Knee completed aSji Abdalla MD [address] [place] [address], [phone], [facility] 06/17/2024 13:06:19 3 Joint Inj Kenalog- Shoulder, Hip, Knee completed Saji Abdalla MD [address] [place], [address], [facility], Maya 06/18/2023 13:52:04 7 Colonoscopy completed [facility], Maya 06/18/2023 16:41:45 excision of right kidney completed [facility], Maya 06/18/2023 16:40:56 Mohs surgery completed [facility], Maya 06/18/2023 16:41:13 Imaging Results None recorded. Procedure [...] doxazosin at bedtime 05/13 completed DOC DM/sd; 63798; Recorded 08/24/19 23 8:33AM by Keila Hernandez (Authori zed through Jose Armando Ha MD), Refill Request; [...] Updated DateTime 5 173.99 cm 33 kg/m2 95885.3 2 g 97 % 97 % 78 /min 98.2 [degF] 158/82 mm[Hg] Emerald Yost [facility], [facility] 5 17:46:44 Date Recorded Body weight Body temperature Heart rate Oxygen saturation Oxygen saturation in Arterial blood by Pulse oximetry Body mass index (BMI) Body height Systolic And Diastolic Provider Name and Address Organization Details Last Updated DateTime 3 09768.2 1 g 97.9 [degF] 87 /min 98 % 98 % 31.2 kg/m2 173.99 cm 128/76 mm[Hg] [facility] 3 13:14:24 Date Recorded Body height Body mass index (BMI) Body weight Body temperature Heart rate Oxygen saturation Oxygen saturation in Arterial blood by Pulse oximetry Systolic And Diastolic Provider Name and Address Organization Details Last Updated DateTime 4 173.99 cm 32.2 kg/m2 84874.3 6 g 97.3 [degF] 95 /min 97 % 97 % 124/76 mm[Hg] [facility] 4 12:35:10 Date Recorded Body height Body mass index (BMI) Body weight Body temperature Heart rate Oxygen saturation Oxygen saturation in Arterial blood by Pulse oximetry Systolic And Diastolic Provider Name and Address Organization Details Last Updated DateTime 3 173.99 cm 31 kg/m2 28221.6 2 g 98.2 [degF] 90 /min 97 % 97 % 132/84 mm[Hg] [facility] 3 13:28:35 Social History Question Answer Notes LastModified by [employer] Details LastModified Time Tobacco Smoking Status Never Smoker [email or web address] 06/18/2023 16:40:36 What Was The Date Of Your Most Recent Tobacco Screening? 05/11/2025 [email or web address] Information not available 05/11/2025 Sex: Unknown Functional Status Question Answer Note LastModified by [employer] Details LastModified Time Do you use any illicit or recreational drugs? No [email or web address] Information not available 06/18/2023 Do you or have you ever used any other forms of tobacco or nicotine? No [email or web address] Information not available 06/18/2023 What is your level of alcohol consumption? Occasional [email or web address] Information not available 06/18/2023 Mental Status None recorded. Family History Nothing Reported. Medical History No medical history recorded. Immunizations Vaccine Type Date Status Note Provider Nam e and Address Organization Details Recorded Time Tdap 3 completed Not Available [facility] 06/18/2023 12:59:03 Influenza, recombinant, quadrivalent, PF 0 completed Not Available [facility] 06/18/2023 12:59:03 zoster live 3 completed Not Available [facility] 06/18/2023 12:59:03 COVID-19, mRNA, LNP-S, PF, 100 mcg/0.5mL dose or 50 mcg/0.25mL dose 1 completed Clarissa Erick null, [facility] 05/13/2023 13:12:10 COVID-19, mRNA, LNP-S, PF, 100 mcg/0.5mL dose or 50 mcg/0.25mL dose 1 completed Clarissa Rosalesoch null, [facility] 05/13/2023 13:12:10 Pneumococcal conjugate PCV 13 8 completed Not Available [facility] 06/18/2023 12:59:03 pneumococcal polysaccharide PPV23 9 completed Not Available [facility] 06/18/2023 12:59:03 COVID-19, mRNA, LNP-S, PF, 100 mcg/0.5mL dose or 50 mcg/0.25mL dose 1 completed Clarissa Rosalesoch null, [facility] 05/13/2023 13:12:10 Influenza, split virus, quadrivalent, PF 1 completed Clarissa Suarez null, [facility] 05/13/2023 13:12:10 Past Encounters Encounter ID Performer Location Encounter Start Date Encounter Closed Date Diagnosis/Indication Diagnosis SNOMED-CT Code Diagnosis ICD10 Code Diagnosis IMO Codes Diagnosis Note [id number] Saji Abdalla MD [facility] ([facility]) [address] [place] [address] 10/29/2022 12:33:51 10/29/2022 20:42:28 History of squamous cell carcinoma of skin 088642161 Z85.828 he would like to transfer her dermatolog y care to dr. osborn. I will arrange. History of primary malignant neoplasm of kidney 251875470 Z85.528 Hyperlipidemia 42977158 E78.5 Chronic ki dney disease stage 2 228123007 N18.2 [id number] Saji Abdalla MD [facility] ([facility]) [address] [place] [id number] 05/13/2023 12:49:42 05/13/2023 14:38:23 Pain in left sacroiliac joint [id number] M53.3 Left flank pain 46471370 9 R10.9 History of primary malignant neoplasm of kidney 382961203 Z85.054 [id number] Saji Abdalla MD [facility] ([facility]) [address] [place] [phone] 06/18/2023 12:58:50 06/18/2023 17:01:03 Pain in left sacroiliac joint [id number] 8882851 M53.3 History of malignant neoplasm of skin 370725841 Z85.322 [id number] Saji Abdalla MD [facility] ([facility]) [address] [place] [phone] 06/17/2024 12:13:57 06/18/2024 13:12:25 Pain in left sacroiliac joint [id number] 6522944 M53.3 Generalize d anxiety disorder 55615578 F41.1 [id number] Saji Abdalla MD [facility] ([facility]) [address] [place] [phone] 06/18/2024 08:06:13 06/19/2024 11:15:27 Hyperlipidemia 51382856 E78.5 Chronic ki dney disease stage 3 099700744 N18.30 [id number] UZMA MELLO [facility] ([facility]) [address] [place] [phone] 05/11/2025 17:37:53 05/11/2025 18:05:49 Low back pain 892569777 M54.50 [id number] Health Concerns Section Related Observation LastModified by Organization Detai ls LastModified Time None Recorded Concern Status LastModified by Organization Details LastModified Time None Recorded Advance Directives Directive None Recorded Payers Insurance Date Sequence Insurance Name Policy Number Policy Bueno Covered Member ID Bueno Member ID Guarantor Name 05/11/2025 2 [place] Anderson Ray [id number] Anderson Ray 05/11/2025 1 [place] Anderson Ray [id number] Anderson Ray 12/16/2024 2 [employer] (MEDICARE SUPPLEMENT) Anderson Ray [id number] Anderson Ray 05/11/2025 [facility] - [facility] - [id number] (MEDICARE) Anderson Ray [id number] Anderson Ray 05/11/2025 2 [employer] - PLAN F (MEDICARE SUPPLEMENT) [id number] Anderson Ray [id number] Anderson Ray Notes Date Note Type Note Provider Name and Address Organization Details Recorded Time 05/13/2023 text/html Back PainReporte d by PatientHPIFor location, patient reportslumbar left(radiates around side to llq of abdomen). For quality, patient reportssharp,dull, andgnawing. For duration, patient reports1-2 months. For timing, patient reportsacute (started after a fall in the shower). For associated symptoms, patient reportsno fever,no weakness,no numbness, andno tingling. For aggravating factors, (movement after rest).ROS as noted in the HPI the fall was a few months agoit was a hard fallhe didn't notice any new pain for a month later, however. he has been very compliant with HEP and it is just not doing it. Saji Abdalla MD [address] [place] [address], [phone], [facility] 05/13/2023 13:45:55 06/18/2023 text/html Back PainReporte d by PatientHPIFor location, patient reportslumbar left. For quality, patient reportssharp,dull, andgnawing. For duration, patient reports2-3 months. For timing, patient reportsacute (started after a fall in the shower). For associated symptoms, patient reportsno fever,no weakness,no numbness, andno tingling. For context, (worse at night). For alleviating factors, (has taken some hydrocodone for this pain, but has only taken seven for fear of becoming addicted.). For aggravating factors, (movement after rest).ROS as noted in the HPI he wakes up and doesn't feel too bad. the pain is in the left sacroiliac joint. by the end of the day it gets pretty sore. usually tylenol and heating pad for 15 minutes takes care of it. sitting seems to worsen the pain. if he goes down to the basement and walks that helps.he has been dong his HEP at home and this seems to help. his steroid injection initially helped wonderfully. he went straight out and painted he felt so good. h was on the ladder for 12 hours Saji Abdalla MD [address] [place] [address], [phone], [facility], [facility] 06/18/2023 16:55:37 06/17/2024 text/html Anxiety/Depressi onRepo rted by PatientHPIFor severity, patient reportsincreased anxiety. For associated symptoms, patient reportseating less (improving),anxiety, andrestlessness/agitat ion (feels like he can't stay in bed at times; gets up and walks around the house)but reportssleeping well. For duration, patient reportschronic(worseni ng). Back PainReported by PatientHPIFor location, patient reportsradiation to leg __but reportslumbar left. For quality, patient reportssharp,dull, andgnawing. For severity, patient reportsunchanged. For duration, patient reports___ monthsand1 years. For timing, patient reportschronic (started after a fall in the shower). For associated symptoms, patient reportsno fever,no weakness,no numbness, andno tingling. For context, (worse at night). For aggravating factors, (movement after rest).ROS as noted in the HPI when I made the appt for a check up I didn't have any problems but today I am with my back and anxiety. 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 i feel the first morning going in. he cut across hair ground. he busted his thumb but this has healed. sometime a week or more later his back got bad. he didn't fast for his labs so will do them another day. Saji Abdalla MD [address] [place], [phone], [facility] [place]. 06/17/2024 13:07:00 05/11/2025 text/html ROS as noted in the HPI Walk inBack problems. Left side. Hip area into the groin area. Pain makes him nauseous. x3 days. Using ice to help. Pressure also helps. UZMA MELLO [address] [place], [phone], [facility] [place]. 05/11/2025 18:03:53
[2025-05-13 18:54] LABS: Hematocrit 47.0 % (37-53); Hemoglobin 15.70 g/dL (11.27-16.99); Mean Corpuscular HGB Conc 33.4 g/dL (30-55); Mean Corpuscular Hemoglobin 32.1 pg (27-33); Mean Corpuscular Volume 96.1 fl (82-101); Nucleated Red Blood Cells % 0 %; Platelet Count 212 10^3/cmm (157-399); Red Blood Count 4.89 10^6/uL (3.85-5.65); White Blood Count 14.62 10^3/uL (3.29-11.43)
[2025-05-13 19:13] LABS: Alanine Aminotransferase 23 U/L (0-41); Albumin Level 4.3 g/dL (3.5-5.2); Alkaline Phosphatase 66 U/L (40-130); Anion Gap 18.6 (5-19); Aspartate Amino Transferase 23 U/L (0-40); Blood Urea Nitrogen 30 mg/dL (8-23); Calcium 9.0 mg/dL (8.5-10.5); Carbon Dioxide 22 mmol/L (22-29); Chloride 105 mmol/L (98-107); Creatinine Clr Calc Pharmacy 42.5353; Globulin 3.2 g/dL (1.3-4.6); Glucose 117 mg/dL (65-115); Osmolality Calculated 299 mOsm/kg (285-295); Potassium 4.6 mmol/L (3.5-5.1); Sodium 141 mmol/L (136-145); Total Protein 7.5 g/dL (6.6-8.7)
--- NOTE | 2025-05-13 19:42 | W.ED.BACK ---
HPI - Back Pain/Injury General: Chief Complaint: Back Pain/Injury Stated Complaint: lower left back pain Time Seen by Provider: 05/13/25 19:34 Source: patient Mode of arrival: ambulatory Limitations: no limitations History of Present Illness: Patient is a nice 84-year-old male presents to ED today for left-sided back pain that has been present over the past several days. Patient states he has had identical symptoms previously that were treated successfully with steroids. He did see his primary care provider, Dr. Abdalla, recently who gave him IM steroids but this time it does not seem to be helping. He does have an appointment to see him again on the morning but states his pain got so severe today that he decided to come to the emergency department. He does feel like pain sometimes radiates into his left groin. He is not having any pain into his buttock or down his left leg. He has no urinary symptoms. No history of urolithiasis. MD elicited complaint: back pain Pertinent past history: prior back pain Onset (ago): day(s) Timing: constant Severity: severe Similar Symptoms Previously: Yes Location: left lower back Radiation: groin Exacerbating factors: movement Relieving factors: other (lying still; certain positions) Associated symptoms: Deny abdominal pain, chills, difficulty walking, dysuria, fatigue, fever(s), hematuria or urinary urgency Treatments prior to arrival: other (steroids) Work related injury: No Related Data Home Medications ?Medication ?Instructions ?Recorded ?Confirmed doxazosin 8 mg tablet 8 mg PO DAILY 05/20/23 05/20/23 gabapentin 300 mg capsule 300 mg PO DAILY 05/20/23 05/20/23 paroxetine HCl 10 mg tablet 10 mg PO DAILY 05/20/23 05/20/23 rosuvastatin 20 mg tablet 20 mg PO BEDTIME 05/20/23 05/20/23 Previous Rx's ?Medication ?Instructions ?Recorded cyclobenzaprine 10 mg tablet 10 mg PO TID #14 tabs 05/20/23 hydrocodone 5 mg-acetaminophen 325 1 tab PO Q6H PRN pain #14 tabs 05/20/23 mg tablet ibuprofen 600 mg tablet 600 mg PO Q8H PRN pain #20 tabs 05/20/23 methylprednisolone 4 mg tablets in See Rx Instructions PO .COMPLEX 05/20/23 a dose pack (Medrol (Mohan)) #21 ea Allergies Allergy/AdvReac Type Severity Reaction Status Date / Time No Known Allergies Allergy Verified 06/16/21 19:36 Review of Systems Const: Denies: fever(s), chills, body aches, fatigue or malaise Card: Denies: chest pain Resp: Denies: dyspnea GI: Denies: abdominal pain : Denies: flank pain, difficulty urinating, dysuria, urinary frequency, urinary urgency or hematuria Musc: Reports: back pain; Denies: neck pain, extremity pain, extremity swelling, joint pain, joint swelling or joint redness Neuro: Denies: headache(s), numbness in extremities, weakness in extremities, sensory changes or difficulty walking PFSH ED PFSH: Social History Smoking and tobacco/nicotine status: never used tobacco/nicotine Physical Exam Const: COMMON NORMALS: no acute distress, average body habitus, patient oriented x3, no limitations, healthy appearing, alert and well nourished Resp: COMMON NORMALS: normal respiratory effort and clear to auscultation bilaterally AUSCULTATION: clear to auscultation bilaterally Cardio: COMMON NORMALS: regular rate and regular rhythm RATE: regular rate RHYTHM: regular rhythm GI: COMMON NORMALS: Normal to inspection, nondistended, normoactive bowel sounds present, Soft to palpation, non-tender, No hepatosplenomegaly present and no masses PALPATION: Yes Soft to palpation and Yes No hepatosplenomegaly present : COMMON NORMALS: Yes no CVA tenderness BLADDER/KIDNEY EXAM: Yes no CVA tenderness Back/Pelvis: COMMON NORMALS: no CVA tenderness, thoracic and lumbar spine normal to inspection, no thoracic nor lumbar tenderness and straight leg raise negative bilaterally THORACIC SPINE/UPPER BACK: No thoracic spinal tenderness LUMBAR SPINE/LOWER BACK: No lumbar spinal tenderness, Yes paraspinal muscle tenderness Lumbar paraspinal muscle tenderness: left and No mass present PELVIS: Yes buttocks normal and No sciatic notch tenderness SACROILIAC JOINTS: Yes SI joints normal SACRUM: no tenderness COCCYX: no tenderness BACK IMAGE (MALE):  1. TTP Extremity: COMMON NORMALS: normal to inspection, capillary refill normal, no clubbing, cyanosis or edema, no calf tenderness and no pedal edema GENERAL: Yes normal exam except as noted Neuro: COMMON NORMALS: patient oriented x3, moves all extremities, no focal motor deficits and no sensory deficits noted SENSORIUM/ORIENTATION: Yes alert Skin: COMMON NORMALS: no rashes or lesions noted GENERAL SKIN EXAM: no rashes or lesions noted Course Vital Signs: Vital signs: Vital Signs Temperature 98.0 F 05/13/25 17:34 Pulse Rate 65 05/13/25 20:47 Respiratory Rate 16 05/13/25 20:47 Blood Pressure 155/89 05/13/25 20:47 Pulse Oximetry 97 05/13/25 20:47 Oxygen Delivery Me thod Room Air 05/13/25 20:47 MDM - Back Pain/Injury Medical Decision Making Patient here for left-sided lower back pain. Patient states he has had this identical pain previously. He feels better after medications given here. Anti-inflammatories were avoided as he has a solitary kidney and did have elevation to creatinine at 1.5. He has no history of urolithiasis. Urinating normally. UA without blood or evidence for infection. Blood work showing nonspecific elevation to his WBC at 14.6. His BUN/Cr is 30/1.5. He does not know his baseline and most recent comparison we have is from 2020. Patient does have follow-up with his primary care provider tomorrow so we will follow-up on these labs as well as his back pain. Differential Diagnosis Likely lumbar radiculopathy, sciatica and strain of lumbar region Medical Records I reviewed the patient's medical records. Labs I reviewed the patient's lab results. 05/13/25 18:40 05/13/25 18:40 Laboratory Results WBC 14.62 10^3/uL (3.29-11.43) H 05/13/25 18:40 RBC 4.89 10^6/uL (3.85-5.65) 05/13/25 18:40 Hgb 15.70 g/dL (11.27-16.99) 05/13/25 18:40 Hct 47.0 % (37-53) 05/13/25 18:40 MCV 96.1 fl (82-101) 05/13/25 18:40 MCH 32.1 pg (27-33) 05/13/25 18:40 MCHC 33.4 g/dL (30-55) 05/13/25 18:40 RDW 13.1 % (12.1-15.1) 05/13/25 18:40 Plt Count 212 10^3/cmm (157-399) 05/13/25 18:40 MPV 9.4 fL (7.4-10.4) 05/13/25 18:40 Neut % (Auto) 84.3 % 05/13/25 18:40 Lymph % (Auto) 9.1 % 05/13/25 18:40 [place] % (Auto) 5.9 % 05/13/25 18:40 Eos % (Auto) 0.1 % 05/13/25 18:40 Baso % (Auto) 0.1 % 05/13/25 18:40 Neut # (Auto) 12.34 10^3/uL (1.8-7.7) H 05/13/25 18:40 Lymph # (Auto) 1.3 10^3/uL (0.8-4.8) 05/13/25 18:40 [place] # (Auto) 0.9 10^3/uL (0.2-0.9) 05/13/25 18:40 Eos # (Auto) 0.0 10^3/uL (0.0-0.8) 05/13/25 18:40 Baso # (Auto) 0.0 10^3/uL (0.0-0.1) 05/13/25 18:40 Nucleated RBC % (auto) 0 % 05/13/25 18:40 Nucleated RBCs # 0.0 /100WBC 05/13/25 18:40 Sodium 141 mmol/L (136-145) 05/13/25 18:40 Potassium 4.6 mmol/L (3.5-5.1) 05/13/25 18:40 Chloride 105 mmol/L (98-107) 05/13/25 18:40 Carbon Dioxide 22 mmol/L (22-29) 05/13/25 18:40 Anion Gap 18.6 (5-19) 05/13/25 18:40 BUN 30 mg/dL (8-23) H 05/13/25 18:40 Creatinine 1.5 mg/dL (0.7-1.2) H 05/13/25 18:40 GFR Calculation Not Reportable 05/13/25 18:40 Glucose 117 mg/dL (65-115) H 05/13/25 18:40 Calculated Osmolality 299 mOsm/kg (285-295) H 05/13/25 18:40 Calcium 9.0 mg/dL (8.5-10.5) 05/13/25 18:40 Total Bilirubin 0.4 mg/dL (0.15-1.2) 05/13/25 18:40 AST 23 U/L (0-40) 05/13/25 18:40 ALT 23 U/L (0-41) 05/13/25 18:40 Alkaline Phosphatase 66 U/L (40-130) 05/13/25 18:40 Total Protein 7.5 g/dL (6.6-8.7) 05/13/25 18:40 Albumin 4.3 g/dL (3.5-5.2) 05/13/25 18:40 Globulin 3.2 g/dL (1.3-4.6) 05/13/25 18:40 Urine Color Yellow (Yellow) 05/13/25 19:50 Urine Appearance Clear (CLEAR) 05/13/25 19:50 Urine pH 5.5 (5-7) 05/13/25 19:50 Ur Specific [place] 1.031 (1.005-1.030) H 05/13/25 19:50 Urine Protein Trace (Negative) A 05/13/25 19:50 Urine Glucose (UA) Negative (Normal) 05/13/25 19:50 Urine Ketones Negative (Negative) 05/13/25 19:50 Urine Blood Negative (Negative) 05/13/25 19:50 Urine Nitrate Negative (Negative) 05/13/25 19:50 Urine Bilirubin Negative (Negative) 05/13/25 19:50 Urine Urobilinogen 1.0 mg/dL (Negative) 05/13/25 19:50 Ur Leukocyte Esterase Negative (Negative) 05/13/25 19:50 Urine RBC 0-2 /hpf (0-2) 05/13/25 19:50 Urine WBC 0-5 /hpf (0-5) 05/13/25 19:50 Ur Squamous Epith Cells 0-5 /hpf (0-5) 05/13/25 19:50 Amorphous Sediment Not Reportable 05/13/25 19:50 Urine Bacteria None seen /hpf (NONE) 05/13/25 19:50 Hyaline Casts 0-4 /lpf H 05/13/25 19:50 No radiology studies performed this visit Discharge Plan Discharge Patient Disposition: Home Clinical Impression: Acute left-sided back pain Qualifiers: Back pain location: low back pain Sciatica presence: without sciatica Qualified Code(s): M54.50 - Low back pain, unspecified Condition: Stable Prescriptions: No Action paroxetine HCl 10 mg tablet 10 mg PO DAILY doxazosin 8 mg tablet 8 mg PO DAILY gabapentin 300 mg capsule 300 mg PO DAILY rosuvastatin 20 mg tablet 20 mg PO BEDTIME cyclobenzaprine 10 mg tablet 10 mg PO TID Qty: 14 0RF hydrocodone-acetaminophen 5-325 mg tablet 1 tab PO Q6H PRN (Reason: pain) Qty: 14 0RF Medrol (Mohan) 4 mg tablets,dose pack See Rx Instructions .ROUTE .COMPLEX Qty: 21 0RF Rx Instructions: orally per package directions ibuprofen 600 mg tablet 600 mg PO Q8H PRN (Reason: pain) Qty: 20 0RF Discharge Orders: Discharge ED (Routine); Ordered 05/13/25 Ordered By: Caridad Andrade Referrals: Jerome Abdalla MD [Primary Care Provider, Family Practice] Patient Instructions: Patient Portal & Olivia Instructions Activity Restrictions/Additional Instructions: As we discussed, you were given medications here in the emergency department this evening to help with your discomfort. Please follow-up with Dr. Abdalla as scheduled tomorrow. Your urine analysis did not show any blood or evidence for infection. We did discuss following up with him about your BUN/Cr (you did not know your baseline and most recent comparisons we have is from 2020) but these labs were 30/1.5 today. Print Language: Macedonian Coding Level of Care Code ED Donor Technician for Diana Wick
[2025-05-13 19:54] VITALS: BP 181/84; PULSE 62; RESP 16; O2SAT 97
[2025-05-13 20:15] LABS: Glucose Urine UA Negative (Normal); Nitrate Urine Negative (Negative)
[2025-05-13 20:20] LABS: Add Urine Microscopic? YES
[2025-05-13 20:22] LABS: Specific Gravity, Urine 1.031 (1.005-1.030)
[2025-05-13] MEDS: orphenadrine 30 mg/mL Inj 2 mL 60 MG IVP (20:34)
[2025-05-13] MEDS: ondansetron 2 mg/ML SDV 2 mL 4 MG IVP (20:34)
[2025-05-13 20:35] VITALS: RESP 16; O2SAT 97
[2025-05-13] MEDS: morphine 4 mg/mL SDV 1 mL IVP (20:35)
[2025-05-13 20:47] VITALS: BP 155/89; PULSE 65; RESP 16; O2SAT 97
[2025-05-13 21:35] VITALS: RESP 14; O2SAT 96
[2025-05-13] MEDS: fentaNYL 50 mcg/mL INJ 2mL 75 MCG IVP (21:35)
[2025-05-13 21:41] VITALS: BP 155/89; PULSE 60; RESP 14; O2SAT 96
== END 2025-05-13 21:58 | disposition home or self-care (01) ==
PROVIDERS: Emergency Medicine; Emergency Provider Physician Assistant; PCP Family Medicine
DX: M54.50 Low back pain, unspecified (principal)
CPT/HCPCS: 36415; 80053; 81001; 85025; 96374; 96375; 99284; J1100; J2270; J2360; J2405; J3010